=== PATIENT | male | born 1955 | race Caucasian/White ===

== ENCOUNTER 2017-12-23 07:07 | Inpatient (IN) | payer BC ==
[2017-12-23] VITALS (17 sets, daily range): BP systolic 103–139; BP diastolic 69–92; PULSE 56–69; TEMP 36.4–37.2; O2SAT 95–99; Ht 167.6 cm; Wt 109.0 kg
[~2017-12-23] VITALS: Ht 167.6 cm; Wt 109.0 kg
[~2017-12-23 07:07] MED LIST: ALLO300T2 PO; CHOL400C PO; CLN200; FEXO1TAB46 PO; LANS30CA63 PO; LOSA50TA54 PO; PRED20TA2 PO; SILD100T PO; SIMV10TA5 PO; VNTHFA/IN INH
[2017-12-23] MEDS ORDERED: MIDAZOLAM HCL 1 MG/ML 2ML VIAL ONE (07:38)
[2017-12-23] MEDS ORDERED: HEPARIN SOD (PORCINE) 1000 UNIT/ML 10 ML VIAL ONE ×2 (07:38→09:13)
[2017-12-23] MEDS ORDERED: FENTANYL CITRATE INJ 50 MCG/1 ML 2 ML VIAL ONE ×2 (07:38→09:39)
[2017-12-23] MEDS ORDERED: NITROGLYCERIN/D5W 100MCG/ML 20ML SYR ONE (07:38)
[2017-12-23] MEDS ORDERED: NiCARDipine HCL INJ 2.5 MG/ML 10 ML AMP ONE (07:38)
[2017-12-23] MEDS ORDERED: SODIUM CHLORIDE 0.9% 1000ML 1,000 ML IV SCH (08:10)
--- NOTE | 2017-12-23 08:10 | History & Physical Bridge Note ---
H&P Re-Evaluation Bridge Note: I have examined the patient, reviewed the History & Physical and in the interval since the performance of the History & Physical I have noted the following changes of clinical significance: No changes noted
[2017-12-23] MEDS ORDERED: DC ALL ANTICOAGULANTS ONE (08:15)
[2017-12-23] MEDS ORDERED: ADENOSINE IV SOLN 3 MG/ML 20 ML VIAL ONE (08:45)
[2017-12-23] MEDS ORDERED: CLOPIDOGREL BISULFATE 300 MG TAB PO ONE (09:32)
[2017-12-23] MEDS ORDERED: NITROGLYCERIN 0.4 MG SL PER TAB CHARGE SL PRN (09:45)
[2017-12-23] MEDS ORDERED: ONDANSETRON INJ 2 MG/ML 2 ML VIAL IV PRN (09:45)
[2017-12-23] MEDS: SODIUM CHLORIDE 0.9% 1000ML 1,000 ML IV SCH ×2 (09:45→19:37)
--- NOTE | 2017-12-23 09:50 | Post Sedation Assessment ---
Post Sedation Assessment General Date of Sedation Dec 23, 2017. Vital Signs: Vital Signs Past 12 Hours Date Time Temp Pulse Resp B/P (MAP) Pulse Ox O2 Delivery O2 Flow Rate FiO2 12/23/17 09:35 66 16 128/86 (100) 99 Room Air 12/23/17 09:30 66 16 116/83 (94) 99 Room Air 12/23/17 07:17 37.2 69 14 139/83 (101) 98 Room Air Post Procedure Recovery Score Activity: (2) Moves 4 extremities * Respiration: (2) Deep breath/cough Circulation: (2) +/-20% PreAnes Value Consciousness: (2) Fully Awake Oxygen Saturation: (2) > 92% On Room Air Post Anesthesia Score: 10 Discharge Sedation Level of Care: Fast Track Phase II Post Sedation Plan On clinical assessment, the patient appears to have tolerated the sedation without complications. Patient is recovering as anticipated. Patient will continue to be monitored by nursing and may be discharged when sedation discharge criteria are met per below protocol. Upon Completions of procedure and additional 15 minutes continue every 5 minute vital signs and the P.A.R. score; then discharge to a Phase I or Fast Track to Phase II per the following guidelines: * Discharge Patient to appropriate Phase II area if PAR is 8 or greater or return to pre- procedure baseline. The post - procedure orders will be as directed. * If PAR score is less than 8 or not return to pre-procedure baseline then patient will follow Phase I monitoring till PAR is reached for Phase II. The Phase I may be done in procedure room or may call to secure a Phase I area. * If naloxone or flumazenil are used for reversal, hold in Phase I for an additional 60 -120 minutes before discharge to Phase II. Please call the Sedation Physician to re-evaluate and complete post-note for discharge to Phase II area. Do NOT discharge from procedure sedation or Phase 1 until post- sedation evaluation note is complete by procedure /sedation MD Sedation Discharge Instructions to be given to the patient at discharge to home.
--- NOTE | 2017-12-23 09:52 | [facility] Post Operative Brief Note ---
Preliminary Procedure Note Procedure Date Dec 23, 2017. Pre-Procedure Diagnosis Positive Stress Test AUC Score 7 Post-Procedure Diagnosis Severe CAD, Successful PCI Procedure(s) Performed Drug Eluting Stent Backroom Associate Can Fluorescent Lamp Replacer(s) Contino Estimated Blood Loss <15 Medication(s) Clopidogrel, Fentanyl, Heparin, Nitroglycerin, Versed, Lidocaine 1% Preliminary Findings 1. 70-80% calcified mid LAD stenosis. 2. Successful PCI of proximal to mid LAD with single DEUCE (2.75 x 18 [place]; post- dilated to 3.0). Recommendations PCI without planned CABG Specimens None Drains none Anesthesia moderate Procedural Complication(s) None Disposition PCU
--- NOTE | 2017-12-23 12:22 | History and Physical ---
History & Physical Date & Time of Service: Dec 23, 2017 ~ 11:30 Chief Complaint: Chest pain Primary Care Physician: Karuna Price M.D. History of Present Illness 62-year-old male who is status post plan cardiac catheterization today [place] Patient had an outpatient stress test that was equivocal and therefore presented for the planned procedure today. Cardiac cath showed a 70-80% mid LAD lesion and one DEUCE was placed. Post-cath, patient is having some mild left-sided residual chest pain. He currently rates the pain #2/10. He denies any radiation of the pain into his jaw, neck, shoulder, arm. He denies shortness of breath and diaphoresis. No lightheadedness or dizziness. He denies abdominal pain and nausea. No other recent illnesses, fevers, chills. Past Medical/Surgical History Medical Problems: (1) CAD (coronary artery disease) Permanent Comment: 12/23/17-DEUCE to LAD Status: Chronic (2) Dyslipidemia Status: Chronic (3) GERD (gastroesophageal reflux disease) Status: Chronic (4) Gout Status: Chronic (5) Hypertension Status: Chronic Surgical Problems: (1) History of appendectomy Status: Chronic Family History FH: CAD (coronary artery disease) FATHER (First CA at age 47) MOTHER (CA in her 60s) Stroke FATHER ( from CVA at age 61) Social History Smoking Status: Never Smoker Alcohol Use: none Immunizations History of Influenza Vaccine: Yes Influenza Vaccine Date: Mar 09, 2017 History of Tetanus Vaccine?: Yes Tetanus Immunization Date: Feb 12, 2011 Allergies Coded Allergies: No Known Allergies (Verified Allergy, Mild, 02/27/07) Home Medications Scheduled Albuterol Hfa (Ventolin Hfa), 1 PUFF INH Q4 Allopurinol (Zyloprim), 300 MG PO DAILY Cholecalciferol (Vitamin D3 400), 400 INTER.UNIT PO DAILY Fexofenadine Hcl (Jessica), 180 MG PO DAILY Lansoprazole (Prevacid), 30 MG PO DAILY Losartan Potassium (Cozaar), 50 MG PO DAILY Sildenafil Citrate (Viagra), 100 MG PO PRN Simvastatin (Zocor), 10 MG PO QPM Sulindac (Sulindac), BID Review of Systems ROS per HPI, all other systems reviewed and negative Physical Exam Vital Signs Date Time Temp Pulse Resp B/P (MAP) Pulse Ox O2 Delivery O2 Flow Rate FiO2 12/23/17 11:04 64 18 134/86 (102) 95 Nasal Cannula 12/23/17 10:34 63 17 97 12/23/17 10:30 56 16 127/92 (104) 97 Room Air 12/23/17 10:15 57 16 124/88 (100) 97 Room Air 12/23/17 10:09 36.4 59 18 123/83 98 Room Air 12/23/17 09:40 66 16 126/93 (104) 100 Room Air 12/23/17 09:35 66 16 128/86 (100) 99 Room Air 12/23/17 09:30 66 16 116/83 (94) 99 Room Air 12/23/17 07:17 37.2 69 14 139/83 (101) 98 Room Air General Appearance: WD/WN, no apparent distress Head: normocephalic, atraumatic Eyes: normal inspection, EOMI, sclerae normal ENT: hearing grossly normal, + pertinent finding (Mucous membranes moist) Neck: supple, no JVD, trachea midline Respiratory/Chest: lungs clear, normal breath sounds, no respiratory distress Cardiovascular: regular rate, rhythm, no edema, normal peripheral pulses Abdomen/GI: normal bowel sounds, non tender, soft, no organomegaly Extremities/Musculoskelatal: normal inspection, no calf tenderness, normal capillary refill Neurologic/Psych: no motor/sensory deficits, alert, normal mood/affect, oriented x 3 Skin: normal color, warm/dry Diagnostics Laboratory Results Results Past 24 Hours Test 12/23/17 09:04 Range/Units Kaolin Activated Coagulation Time 202 94-140 SECONDS Impression Assessment and Plan CAD -Admitted to telemetry post-cath -Patient presented for planned cardiac catheterization after outpatient stress test was equivocal -Cardiac cath showed a 70-80% mid LAD lesion, patient underwent DEUCE placement -Monitor overnight for worsening chest pain -Started on dual antiplatelet therapy; continue outpatient statin and ARB HYPERTENSION -BP controlled, continue losartan GERD -Continue PPI GOUT -Continue allopurinol DVT PROPHYLAXIS -SCDs given the recent procedure ADDENDUM: This is a 62 year old male with a past medical history of HTN, CAD - presents for a scheduled cardiac catheterization. Had one stent placed earlier today and is now in the PCU for monitoring. He states he's doing fine; had 2/10 chest pain earlier, but now is improving. Denies shortness of breath; no nausea/vomiting Plan: continued tele monitoring monitor for chest pain; monitor labs in AM repeat troponin as per cardiology; further management as per cardiology Advanced Directives Existing Living Will: No Existing Power of Box Order Person: No Resuscitation Status VTE Prophylaxis Will order VTE Prophylaxis: Yes
--- NOTE | 2017-12-23 13:03 | Cardiac Catheterization ---
Procedure Note Procedure Date Dec 23, 2017. Pre-Procedure Diagnosis Positive Stress Test AUC Score 7 Post-Procedure Diagnosis Severe CAD, Successful PCI Procedure(s) Performed Drug Eluting Stent, Femoral Artery Angiography Drip Box Tender Can Cad Design Engineer(s) Contino Estimated Blood Loss <15 Medication(s) Clopidogrel, Fentanyl, Heparin, Nitroglycerin, Versed, Lidocaine 1% Summary of Findings Indication: Positive stress test Access: 6Fr right DENTAL APPLIANCE FIXER Catheters: EBU 3.5 guide Findings: For full details of patient's coronary angiography please cath report dictated by Dr. Sumner. Briefly, patient found to have severe single vessel disease with a 70-80% stenosis involving the proximal to mid LAD. Decision to proceed with PCI. -- PCI -- Antithrombotic therapy: Heparin, Clopidogrel Procedure: LM cannulated with EBU 3.5 guide BMW wire passed across lesion into distal vessel Proximal/mid LAD lesion predilated with 2.5 compliant balloon Dilated lesion stented with 2.75 x 18 [place] DEUCE Stent post-dilated with 3.0 noncompliant balloon IC vasodilators administered for spasm Post procedure SANTI 3 flow, stent well expanded with minimal residual stenosis and no apparent cardiac complications. Arterial Closure: Angio-seal Summary: 1. Successful PCI of proximal to mid LAD with single DEUCE (2.75 x 18 [place]; post- dilated with 3.0 NC). Recommendations: To PCU for continued monitoring Loaded with Clopidogrel 600mg Continue dual-antiplatelet therapy for at least 6 months. Continue statin, and ASCVD risk factor modification Consult cardiac Rehab Hemodynamics Rest Ao: 130/69/98 Final Ao: 110/73/91 LV: -- Recommendations PCI without planned CABG Specimens None Radiation Exposure (mGy) 3741 Contrast (mls) 210 opti (total) Fluids (cc crystalloids) 123 NSS Drains none Anesthesia moderate Procedural Complication(s) None Disposition PCU ACC Data Cardiac Status Clinical evaluation leading to the procedure CAD Presntation: Positive Stress Test Heart Failure: NYHA Class: CCS II Cardiogenic Shock w/in 24Hrs: No Cardiac Arrest w/in 24Hrs: No Imaging studies past 6 months: Yes Stress studies past 6 months: Yes Stress Echocardiogram: Yes - Positive, Risk/Extent of Ischemia (Low) Closure Device Percutaneous Entry Location: Femoral Closure Device: Angio-Seal Recommendations: PCI without planned CABG PCI Indication: + Stress Test Lesion Segment Name: mid LAD Culprit Artery: Yes Stenosis Prior to Rx (%): 70-80% Chronic Total Occlusion: No IVUS: No FFR: No Pre-Procedure SANTI Flow: 3 Previously Treated Lesion: No Lesion Complexity: Non-High/Non-C Lesion Length (mm): 12 Thrombus Present: No Bifurcation Lesion: Yes Guidewire Across Lesion: Yes Guidewire: Stenosis Post-Procedure (%): 0 Device(s) Deployed: Yes Intraprocedure Events Significant Dissection: No Perforation: No
[2017-12-23] MEDS ORDERED: IV FLUIDS COMPLETED PRN (14:30)
--- NOTE | 2017-12-23 15:33 | Procedure Note ---
Cardiac Cath Report Procedure: 1. Left heart catheterization 2. Coronary angiography 3. Left ventriculography History: This is a 62-year-old male patient who has been experiencing exertional dyspnea and chest discomfort. He had an equivocal exercise stress echocardiogram and has been referred for cardiac catheterization. Procedure summary: The patient had a Barbeau maneuver which indicated poor collateral circulation to the right hand. Therefore after informed consent was obtained and the patient was prepped and draped in the usual manner a right transfemoral approach was utilized. Preformed 5 Micronesian diagnostic catheters were utilized for the coronary angiograms. A 5 Micronesian pigtail catheter was utilized for the left ventriculogram. Following the procedure the patient underwent coronary intervention and was admitted in stable condition. Coronary angiography: Selective injections of the left coronary artery reveal a dual ostium left main trunk. The left circumflex artery is dominant. The left circumflex artery has multiple marginal branches the left circumflex artery has mild diffuse nonobstructive disease. The left anterior descending artery gives off to small to medium sized diagonal branches. The LAD is diffusely diseased. At the takeoff of the first diagonal branch and first septal branch there is a high- grade eccentric stenosis. Selective injections of the right coronary artery revealed to be small and nondominant. The right coronary artery has diffuse nonobstructive disease. Left ventriculogram: The left ventricle is of normal size with normal systolic function. The aortic root and ascending aorta have normal morphology and diameter. The mitral valve is competent. The LVEDP is 10. Summary: The patient has a dominant left system. There is a high-grade stenosis in the mid LAD. The remainder the coronary anatomy has nonobstructive disease. The left ventricular function is normal. The estimated left ventricular ejection fraction is 60%. Recommendations: Are for coronary intervention on the LAD.
--- NOTE | 2017-12-23 15:36 | Cardiac Catheterization ---
Procedure Note Procedure Date Dec 23, 2017. Pre-Procedure Diagnosis Angina AUC Score 7 Post-Procedure Diagnosis Severe CAD Procedure(s) Performed Coronary Angiography, Left Heart Cath, LV Angiography High School Music Instructor Dr. Sumner Grappler(s) None Estimated Blood Loss None Medication(s) Versed, Lidocaine 1% Summary of Findings See dictated report Hemodynamics Rest Ao: 125/79 Final Ao: 130/69 LV: 129/10 Recommendations PCI without planned CABG Specimens None Radiation Exposure (mGy) 1440 Contrast (mls) 90 Procedural Complication(s) None Disposition PCU ACC Data Cardiac Status Clinical evaluation leading to the procedure CAD Presntation: Stable angina Anginal Classification: CCS II Heart Failure: No Cardiogenic Shock w/in 24Hrs: No Cardiac Arrest w/in 24Hrs: No Imaging studies past 6 months: No Stress studies past 6 months: Yes Stress Echocardiogram: Yes - Indeterminant Coronary Anatomy Dominant: Left Left Main (% Stenosis): Normal LAD (% Stenosis): Mid (90%) Circumflex (% Stenosis): Normal RCA (% Stenosis): Normal Left Ventricular Angiography EF (%): 60% Diagnostic Physician's Name: Matias Sumner, DO Status: Elective Closure Device Percutaneous Entry Location: Femoral
[2017-12-23] MEDS: ALBUTEROL HFA 8 GM INHALER INH SCH ×2 (17:24→19:36)
[2017-12-23] MEDS: ACETAMINOPHEN 325 MG TAB PO PRN (19:38)
[2017-12-23] MEDS ORDERED: SIMVASTATIN 10 MG TAB PO SCH (21:00)
--- NOTE | 2017-12-23 22:35 | DIAGNOSTIC IMAGING REPORT ---
RIGHT LOWER EXTREMITY VENOUS DOPPLER CLINICAL HISTORY: Leg swelling. COMPARISON STUDY: No previous studies for comparison. TECHNIQUE: Sonography of the deep venous system of the right lower extremity was performed. Compression and augmentation were evaluated. FINDINGS: The right common femoral, superficial femoral and popliteal veins were compressible. Augmentation was normal. Flow was shown within the deep calf vessels. IMPRESSION: No evidence of deep venous thrombus within the right lower extremity. Electronically signed by: Rosendo Contreras M.D. 12/23/2017 10:33 PM Dictated Date/Time: 12/23/2017 10:33 PM
[2017-12-24 00:01] VITALS: BP 105/68; PULSE 56; TEMP 37.1; O2SAT 97
[2017-12-24] MEDS: ALBUTEROL HFA 8 GM INHALER INH SCH ×4 (04:00→12:00)
[2017-12-24 04:01] VITALS: BP 126/89; PULSE 52; TEMP 36.9; O2SAT 96
[2017-12-24] MEDS: ACETAMINOPHEN 325 MG TAB PO PRN (04:26)
[2017-12-24] MEDS: SODIUM CHLORIDE 0.9% 1000ML 1,000 ML IV SCH (04:31)
[2017-12-24 05:09] LABS: BASO % 0.3 %; BASO ABS # 0.02 K/uL (0-0.2); EOS % 1.6 %; EOS ABS # 0.12 K/uL (0-0.5); HEMATOCRIT 40.6 % (42-52); IG# 0.01 K/uL (0.00-0.02); LYMPH % 30.7 %; LYMPH ABS # 2.35 K/uL (1.2-3.4); MEAN CELL VOLUME 86.2 fL (80-100); MEAN CORPUSCULAR HEMOGLOBIN 29.7 pg (25-34); MEAN CORPUSCULAR HGB CONC 34.5 g/dl (32-36); MEAN PLATELET VOLUME 11.1 fL (7.4-10.4); MONO ABS # 0.69 K/uL (0.11-0.59); NEUT % 58.3 %; NEUT ABS # 4.46 K/uL (1.4-6.5); PLATELET COUNT 179 K/uL (130-400); RED CELL DISTRIBUTION WIDTH CV 12.6 % (11.5-14.5); RED CELL DISTRIBUTION WIDTH SD 39.8 fL (36.4-46.3); WHITE BLOOD COUNT 7.65 K/uL (4.8-10.8)
[2017-12-24 05:46] LABS: CALCIUM 7.9 mg/dl (8.5-10.1); CREATININE 1.07 mg/dl (0.60-1.40)
[2017-12-24 08:01] VITALS: BP 129/91; PULSE 65; TEMP 36.8; O2SAT 97
[2017-12-24] MEDS ORDERED: ALLOPURINOL 300 MG TAB PO SCH (09:00)
[2017-12-24] MEDS ORDERED: ASPIRIN 81 MG ECTAB PO SCH (09:00)
[2017-12-24] MEDS ORDERED: PANTOprazole SOD 40 MG TAB PO SCH (09:00)
[2017-12-24] MEDS ORDERED: FEXOFENADINE HCL 180 MG TAB PO SCH (09:00)
[2017-12-24] MEDS ORDERED: LOSARTAN POTASSIUM 50 MG TAB PO SCH (09:00)
[2017-12-24] MEDS ORDERED: CLOPIDOGREL BISULFATE 75 MG TAB PO SCH (09:00)
--- NOTE | 2017-12-24 09:24 | Cardiology Follow-Up ---
Subjective General Date of Service: Dec 24, 2017. Chief Complaint: follow up CAD, LAD stent Pt evaluation today including: conversation w/ patient, conversation w/ family , physical exam, chart review, lab review History of Present Illness The patient is a 62 year old male seen in follow up in coverage of Dr Sumner. Patient feeling well. Denies chest pain or shortness of breath. Right groin pain radiating to R testicle noted shortly after procedure yesterday -resolved. LEVduplex negative for R DVT. Allergies Coded Allergies: No Known Allergies (Verified Allergy, Mild, 02/27/07) Social History Smoking Status: Never Smoker Hx Alcohol Use - Type And Amou: No Hx Substance Use - Type And Am: No Physical Exam Vital Signs Last Vital Signs Documentation Date Time Temp Pulse Resp B/P (MAP) Pulse Ox O2 Delivery O2 Flow Rate FiO2 12/24/17 08:01 36.8 65 14 129/91 (104) 97 Room Air Physical Exam Constitutional: General Apperance: heathly-appearing Level of Distress: NAD Head: normocephalic, atraumatic Neck: supple, trachea midline Lungs: Auscultation: no wheezing, no rales/crackles, no rhonchi Cardiovascular: Heart Auscultation: no murmurs, no rubs, no gallops Peripheral Pulses: Bruits: none appreciated Femoral Pulse: normal on the left, normal on the right Abdomen: Bowel Sounds: normal Inspection & Palpation: soft, non-distended Extremities: no edema, no varicosities Neurologic: Gait & Station: pertinent finding (no focal deficits ) Assessment and Plan Assessment and Plan Telemetry: SB and SR in the 50-60 bpm range, no significant arrhythmia Impression: 62 year old male 1. Admitted for exertional angina, underwent cardiac cath 12/23/17 revealing single vessel CAD with high grade proximal LAD stenosis treated with PCI, DEUCE 2. 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 HTN-controlled 4. Dyslipidemia 5. Borderline sinus bradycardia Plan: Groin exam: no ecchymosis or evidence of hematoma. Soft. Pt stable for discharge to home. Pt to be discharged on life long low dose ASA 81 mg daily. Clopidogrel 75 mg, current guidelines for DEUCE in abscence of [place], dual antiplatelet therapy for 6-12 months. For now plan for 12 months-duration to be reassessed as outpatient. HTN- continue losartan, ORE BUYER dose. Holding off on starting metoprolol due to relative sinus bradycardia, HRs in 50s at rest on telemetry. Dyslipidemia: DC simvastatin 10 mg, start atorvastatin 40 mg daily. Follow up with Dr Sumner in 2-3 weeks. OK to return to work late next week , if feeling well. Will consider cardiac rehab when seen in follow up. Discharge instructions for femoral artery access: ACTIVITY RECOMMENDATIONS: It is common to feel weak and fatigue for a few days. * Do not drive or operate any motorized equipment for the next three days. * Limit stair usage (2 or 3 trips a day only) for the next three days. * Do not lift anything heavier than 10 pounds for the next three days. * Do not engage in vigorous exercise or any sports for the next five days. * You may shower the day after your procedure, but do not immerse the area for three days. Cleanse the site gently with soap and water. SPECIAL CARE INSTRUCTIONS: * You may replace the pressure dressing or band-aid the morning after the procedure. * After your procedure, it is normal to have a small bruise or small lump at the site. Examine your site daily for any change in the bruise or lump, redness, swelling, drainage or numbness. Notify your doctor if any change. BLEEDING: * If there is a small amount of bleeding at the site, lie down and apply firm pressure with a clean cloth for ten minutes. When the bleeding stops, lie quietly keeping the procedure limb straight for six hours. Notify your doctor as soon as possible. * If the bleeding does not stop after ten minutes or if there is a large amount of bleeding or spurting, call 911 immediately. Continue to lie down and hold firm pressure until help arrives. SKIN IRRITATION: * You may experience some redness and/or swelling in the area where radiation was administered. If any skin irritation occurs, please contact your family physician. FOLLOW UP VISIT: Keep any scheduled doctor appointments. Laboratory Results Last 24 Hours Test 12/24/17 04:21 White Blood Count 7.65 K/uL Red Blood Count 4.71 M/uL Hemoglobin 14.0 g/dL Hematocrit 40.6 % Mean Corpuscular Volume 86.2 fL Mean Corpuscular Hemoglobin 29.7 pg Mean Corpuscular Hemoglobin Concent 34.5 g/dl Platelet Count 179 K/uL Mean Platelet Volume 11.1 fL Neutrophils (%) (Auto) 58.3 % Lymphocytes (%) (Auto) 30.7 % Monocytes (%) (Auto) 9.0 % Eosinophils (%) (Auto) 1.6 % Basophils (%) (Auto) 0.3 % Neutrophils # (Auto) 4.46 K/uL Lymphocytes # (Auto) 2.35 K/uL Monocytes # (Auto) 0.69 K/uL Eosinophils # (Auto) 0.12 K/uL Basophils # (Auto) 0.02 K/uL RDW Standard Deviation 39.8 fL RDW Coefficient of Variation 12.6 % Immature Granulocyte % (Auto) 0.1 % Immature Granulocyte # (Auto) 0.01 K/uL Sodium Level 139 mmol/L Potassium Level 4.0 mmol/L Chloride Level 109 mmol/L Carbon Dioxide Level 25 mmol/L Anion Gap 5.0 mmol/L Blood Urea Nitrogen 16 mg/dl Creatinine 1.07 mg/dl Est Creatinine Clear Calc Drug Dose 83.9 ml/min Estimated GFR () 86.4 Estimated GFR (Non- 74.5 BUN/Creatinine Ratio 14.9 Random Glucose 87 mg/dl Calcium Level 7.9 mg/dl
[2017-12-24 11:33] VITALS: BP 146/82; PULSE 74; O2SAT 96
--- NOTE | 2017-12-24 14:08 | Progress Note ---
Internal Med Progress Note Date of Service: Dec 24, 2017. Provider Documentation: SUBJECTIVE: The patient was seen and examined in ICU Admitted with them unstable angina and is status post cardiac cath and DEUCE in LAD Has been doing fine since the procedure Denies any symptoms as of today except some numbness at the right groin OBJECTIVE: Vital Signs-as noted below Exam: General-no apparent distress at rest Ambulating well Eyes-normal ENT-normal Neck-supple Lungs-clear to auscultate bilaterally Heart-regular, no murmur appreciated Abdomen-benign Extremities-no edema Local examination of the right groin, no significant abnormality Neuro-alert,awake oriented 3 No focal sensory and motor deficit Lab data as noted below. ASSESSMENT & PLAN: CAD Exertional angina status post cardiac cath and DEUCE in LAD-12/23/17 -Patient presented for planned cardiac catheterization after outpatient stress test was equivocal -Cardiac cath showed a 70-80% mid LAD lesion, patient underwent DEUCE placement -Remains stable in ICU without any arrhythmias -Started on dual antiplatelet therapy; continue outpatient statin with increasing dose and ARB. No beta-josefina due to bradycardia -Was evaluated by monotyper this morning -Denies any symptoms and wants to go home HYPERTENSION -BP controlled, continue losartan GERD -Continue PPI GOUT -Continue allopurinol DVT PROPHYLAXIS -SCDs given the recent procedure DISPOSITION Discharged home today Vital Signs: Date Time Temp Pulse Resp B/P (MAP) Pulse Ox O2 Delivery O2 Flow Rate FiO2 12/24/17 11:33 74 15 146/82 (103) 96 Room Air 12/24/17 08:01 36.8 65 14 129/91 (104) 97 Room Air 12/24/17 08:00 Room Air 12/24/17 04:01 36.9 52 15 126/89 (101) 96 Room Air 12/24/17 00:01 37.1 56 16 105/68 (80) 97 Room Air 12/23/17 20:01 37.0 68 15 114/77 (89) 95 Room Air 12/23/17 20:00 Room Air 12/23/17 17:16 65 18 111/84 (93) 95 Room Air 12/23/17 17:01 64 18 118/81 (93) 12/23/17 16:32 59 12 103/69 (80) 99 Room Air 12/23/17 16:00 61 15 108/79 (89) 12/23/17 16:00 Room Air 12/23/17 16:00 61 15 108/79 (89) 97 Room Air 12/23/17 15:31 56 16 110/81 (91) 97 Room Air 12/23/17 15:16 58 13 123/87 (99) 98 Room Air 12/23/17 15:01 59 18 115/86 (96) Lab Results: Results Past 24 Hours Test 12/24/17 04:21 Range/Units White Blood Count 7.65 4.8-10.8 K/uL Red Blood Count 4.71 4.7-6.1 M/uL Hemoglobin 14.0 14.0-18.0 g/dL Hematocrit 40.6 42-52 % Mean Corpuscular Volume 86.2 80-100 fL Mean Corpuscular Hemoglobin 29.7 25-34 pg Mean Corpuscular Hemoglobin Concent 34.5 32-36 g/dl Platelet Count 179 130-400 K/uL Mean Platelet Volume 11.1 7.4-10.4 fL Neutrophils (%) (Auto) 58.3 % Lymphocytes (%) (Auto) 30.7 % Monocytes (%) (Auto) 9.0 % Eosinophils (%) (Auto) 1.6 % Basophils (%) (Auto) 0.3 % Neutrophils # (Auto) 4.46 1.4-6.5 K/uL Lymphocytes # (Auto) 2.35 1.2-3.4 K/uL Monocytes # (Auto) 0.69 0.11-0.59 K/uL Eosinophils # (Auto) 0.12 0-0.5 K/uL Basophils # (Auto) 0.02 0-0.2 K/uL RDW Standard Deviation 39.8 36.4-46.3 fL RDW Coefficient of Variation 12.6 11.5-14.5 % Immature Granulocyte % (Auto) 0.1 % Immature Granulocyte # (Auto) 0.01 0.00-0.02 K/uL Sodium Level 139 136-145 mmol/L Potassium Level 4.0 3.5-5.1 mmol/L Chloride Level 109 98-107 mmol/L Carbon Dioxide Level 25 21-32 mmol/L Anion Gap 5.0 3-11 mmol/L Blood Urea Nitrogen 16 7-18 mg/dl Creatinine 1.07 0.60-1.40 mg/dl Est Creatinine Clear Calc Drug Dose 83.9 ml/min Estimated GFR () 86.4 Estimated GFR (Non- 74.5 BUN/Creatinine Ratio 14.9 10-20 Random Glucose 87 70-99 mg/dl Calcium Level 7.9 8.5-10.1 mg/dl
[2017-12-24] MEDS ORDERED: PLV75 PO (14:10)
[2017-12-24] MEDS ORDERED: ASPI-461 PO (14:10)
[2017-12-24] MEDS ORDERED: LPT40 PO (14:10)
[2017-12-24] MEDS ORDERED: PANT1TAB4 PO (14:10)
--- NOTE | 2017-12-24 14:13 | Discharge Instructions ---
Discharge Instructions Date of Service Dec 24, 2017. Admission Reason for Admission: CAD Discharge Discharge Diagnosis / Problem: CAD,S/P Cardiac Cath and DEUCE in LAD Discharge Goals Goal(s): Prevent Disease Progression Activity Recommendations Activity Limitations: resume your previous activity . Instructions / Follow-Up Instructions / Follow-Up Dr Price on 12/29/17 at 12:[address] Sumner on 01/10/18 at 8:30AM Current Hospital Diet Patient's current hospital diet: AHA Diet (Heart Healthy) Discharge Diet Recommended Diet: AHA Diet (Heart Healthy) Pending Studies Studies pending at discharge: no Medical Emergencies . Who to Call and When: Medical Emergencies: If at any time you feel your situation is an emergency, please call 911 immediately. . Non-Emergent Contact Non-Emergency issues call your: Primary Care Provider . Past History Medical & Surgical History: (1) CAD (coronary artery disease) (2) Dyslipidemia (3) Gout (4) Hypertension (5) GERD (gastroesophageal reflux disease) (6) History of appendectomy . "Provider Documentation" section prepared by Pete Sawyer. . [employer]age Construction Equipment Mechanic Recommendations Garage [employer] Equipment Mechanic Recommendations: ACTIVITY RECOMMENDATIONS: It is common to feel weak and fatigue for a few days. * Do not drive or operate any motorized equipment for the next three days. * Limit stair usage (2 or 3 trips a day only) for the next three days. * Do not lift anything heavier than 10 pounds for the next three days. * Do not engage in vigorous exercise or any sports for the next five days. * You may shower the day after your procedure, but do not immerse the area for three days. Cleanse the site gently with soap and water. SPECIAL CARE INSTRUCTIONS: * You may replace the pressure dressing or band-aid the morning after the procedure. * After your procedure, it is normal to have a small bruise or small lump at the site. Examine your site daily for any change in the bruise or lump, redness, swelling, drainage or numbness. Notify your doctor if any change. BLEEDING: * If there is a small amount of bleeding at the site, lie down and apply firm pressure with a clean cloth for ten minutes. When the bleeding stops, lie quietly keeping the procedure limb straight for six hours. Notify your doctor as soon as possible. * If the bleeding does not stop after ten minutes or if there is a large amount of bleeding or spurting, call 911 immediately. Continue to lie down and hold firm pressure until help arrives. SKIN IRRITATION: * You may experience some redness and/or swelling in the area where radiation was administered. If any skin irritation occurs, please contact your family physician. FOLLOW UP VISIT: Keep any scheduled doctor appointments.
[2017-12-24 14:16] VITALS: BP 146/82; PULSE 74; TEMP 36.8; O2SAT 96
--- NOTE | 2017-12-24 15:20 | Progress Note ---
Progress Note Date of Service Dec 24, 2017. Progress Note Certified that Ayo Amaya Chris JAMIL 1955 has been under my care in [facility] since 12/23/2017. He was advised to go back to his work on , December,. Dr. Nava Sawyer
[2017-12-24] MEDS ORDERED: ATORVASTATIN 40 MG TAB PO SCH (21:00)
--- NOTE | 2017-12-25 08:21 | Discharge Summary ---
Discharge Summary Date of Service Dec 25, 2017. Discharge Summary Admission Date: Dec 23, 2017 at 09:48 Discharge Date: Dec 24, 2017 Discharge Disposition: Home Principal Diagnosis: CAD,S/P Cardiac Cath and DEUCE in LAD Secondary Diagnoses/Problems: Please see H&P and Hospital progress note Consultations: Cardiology Medication Reconciliation New Medications: Aspirin (Aspirin) 81 Mg Tab 81 MG PO QAM for 30 Days, #30 TAB Atorvastatin (Lipitor) 40 Mg Tab 40 MG PO HS for 30 Days, #30 TAB Clopidogrel Bisulfate (Clopidogrel) 75 Mg Tab 75 MG PO QAM for 30 Days, #30 TAB Continue for 12 Months with Aspirin Continued Medications: Albuterol Hfa (Ventolin Hfa) 200 Puffs/11480 Mcg Aers 1 PUFF INH Q4, #1 INHALER Allopurinol (Zyloprim) 300 Mg Tab 300 MG PO DAILY, TAB Cholecalciferol (Vitamin D3 400) 400 Unit Cap 400 INTER.UNIT PO DAILY Fexofenadine Hcl (Jessica) 180 Mg Tab 180 MG PO DAILY, TAB Lansoprazole (Prevacid) 30 Mg Cap 30 MG PO DAILY, CAP Losartan Potassium (Cozaar) 50 Mg Tab 50 MG PO DAILY, TAB Sildenafil Citrate (Viagra) 100 Mg Tab 100 MG PO PRN, TAB Discontinued Medications: Simvastatin (Zocor) 10 Mg Tab 10 MG PO QPM, TAB Sulindac (Sulindac) 200 Mg Tab BID Admission Information HPI (per Admitting provider): 62-year-old male who is status post plan cardiac catheterization today [place] Drs. [place] Patient had an outpatient stress test that was equivocal and therefore presented for the planned procedure today. Cardiac cath showed a 70-80% mid LAD lesion and one DEUCE was placed. Post-cath, patient is having some mild left-sided residual chest pain. He currently rates the pain #2/10. He denies any radiation of the pain into his jaw, neck, shoulder, arm. He denies shortness of breath and diaphoresis. No lightheadedness or dizziness. He denies abdominal pain and nausea. No other recent illnesses, fevers, chills. Physical Exam (per Admitting): General Appearance: WD/WN, no apparent distress Head: normocephalic, atraumatic Eyes: normal inspection, EOMI, sclerae normal ENT: hearing grossly normal, + pertinent finding (Mucous membranes moist) Neck: supple, no JVD, trachea midline Respiratory/Chest: lungs clear, normal breath sounds, no respiratory distress Cardiovascular: regular rate, rhythm, no edema, normal peripheral pulses Abdomen/GI: normal bowel sounds, non tender, soft, no organomegaly Extremities/Musculoskelatal: normal inspection, no calf tenderness, normal capillary refill Neurologic/Psych: no motor/sensory deficits, alert, normal mood/affect, oriented x 3 Skin: normal color, warm/dry Hospital Course CAD Exertional angina status post cardiac cath and DEUCE in LAD-12/23/17 -Patient presented for planned cardiac catheterization after outpatient stress test was equivocal -Cardiac cath showed a 70-80% mid LAD lesion, patient underwent DEUCE placement -Remains stable in ICU without any arrhythmias -Started on dual antiplatelet therapy; continue outpatient statin with increasing dose and ARB. No beta-josefina due to bradycardia -Was evaluated by plastics repairer this morning -Denies any symptoms and wants to go home HYPERTENSION -BP controlled, continue losartan GERD -Continue PPI GOUT -Continue allopurinol DVT PROPHYLAXIS -SCDs given the recent procedure DISPOSITION Discharged home today Total time spent on discharge = 35 minutes This includes examination of the patient, discharge planning, medication reconciliation, and communication with other providers. Discharge Instructions Date of Service Dec 24, 2017. Admission Reason for Admission: CAD Discharge Discharge Diagnosis / Problem: CAD,S/P Cardiac Cath and DEUCE in LAD Discharge Goals Goal(s): Prevent Disease Progression Activity Recommendations Activity Limitations: resume your previous activity . Instructions / Follow-Up Instructions / Follow-Up Dr Price on 12/29/17 at 12:[address] Sumner on 01/10/18 at 8:30AM Current Hospital Diet Patient's current hospital diet: AHA Diet (Heart Healthy) Discharge Diet Recommended Diet: AHA Diet (Heart Healthy) Pending Studies Studies pending at discharge: no Medical Emergencies . Who to Call and When: Medical Emergencies: If at any time you feel your situation is an emergency, please call 911 immediately. . Non-Emergent Contact Non-Emergency issues call your: Primary Care Provider . Past History Medical & Surgical History: (1) CAD (coronary artery disease) (2) Dyslipidemia (3) Gout (4) Hypertension (5) GERD (gastroesophageal reflux disease) (6) History of appendectomy . "Provider Documentation" section prepared by Pete Sawyer. . Felt Hooker Recommendations Felt Hooker Recommendations: ACTIVITY RECOMMENDATIONS: It is common to feel weak and fatigue for a few days. * Do not drive or operate any motorized equipment for the next three days. * Limit stair usage (2 or 3 trips a day only) for the next three days. * Do not lift anything heavier than 10 pounds for the next three days. * Do not engage in vigorous exercise or any sports for the next five days. * You may shower the day after your procedure, but do not immerse the area for three days. Cleanse the site gently with soap and water. SPECIAL CARE INSTRUCTIONS: * You may replace the pressure dressing or band-aid the morning after the procedure. * After your procedure, it is normal to have a small bruise or small lump at the site. Examine your site daily for any change in the bruise or lump, redness, swelling, drainage or numbness. Notify your doctor if any change. BLEEDING: * If there is a small amount of bleeding at the site, lie down and apply firm pressure with a clean cloth for ten minutes. When the bleeding stops, lie quietly keeping the procedure limb straight for six hours. Notify your doctor as soon as possible. * If the bleeding does not stop after ten minutes or if there is a large amount of bleeding or spurting, call 911 immediately. Continue to lie down and hold firm pressure until help arrives. SKIN IRRITATION: * You may experience some redness and/or swelling in the area where radiation was administered. If any skin irritation occurs, please contact your family physician. FOLLOW UP VISIT: Keep any scheduled doctor appointments. Additional Copies To Karuna Price M.D.
== END 2017-12-24 15:46 | disposition home or self-care (01) | DRG 247 ==
LOC: C.CATH 07:07 → ENRESERV 09:34 → C.MSICU 09:48
PROVIDERS: ADMIT Internal Medicine; ATTEND Internal Medicine
PROC: B211YZZ Fluoroscopy of Multiple Coronary Arteries using Other Contrast (ICD-10-PCS; 2017-12-23)
PROC: B215YZZ Fluoroscopy of Left Heart using Other Contrast (ICD-10-PCS; 2017-12-23)
PROC: 4A023N7 Measurement of Cardiac Sampling and Pressure, Left Heart, Percutaneous Approach (ICD-10-PCS; 2017-12-23)
PROC: 027034Z Dilation of Coronary Artery, One Artery with Drug-eluting Intraluminal Device, Percutaneous Approach (ICD-10-PCS; principal; 2017-12-23 07:30)
PROC: B41FYZZ Fluoroscopy of Right Lower Extremity Arteries using Other Contrast (ICD-10-PCS; principal; 2017-12-23 07:30)
DX: I25.10 Atherosclerotic heart disease of native coronary artery without angina pectoris (principal); M79.2 Neuralgia and neuritis, unspecified; I10 Essential (primary) hypertension; E78.5 Hyperlipidemia, unspecified; K21.0 Gastro-esophageal reflux disease with esophagitis; M1A.00X0 Idiopathic chronic gout, unspecified site, without tophus (tophi); J30.9 Allergic rhinitis, unspecified; Z79.1 Long term (current) use of non-steroidal anti-inflammatories (NSAID); Z79.899 Other long term (current) drug therapy; Z82.49 Family history of ischemic heart disease and other diseases of the circulatory system

== ENCOUNTER 2018-08-19 17:12 | Observation (INO) ==
--- NOTE | 2018-08-19 17:57 | XRay Report ---
XR chest 1V portable CLINICAL HISTORY: Chest Pain COMPARISON STUDY: Chest CT September 17, 2017. FINDINGS: Lung volumes are at the lower limits of normal. There is no pneumothorax or pleural effusio n. Linear left lung opacities favor atelectasis or scarring. These are unchanged. No evidence for pul monary edema. Mild cardiomegaly is noted. IMPRESSION: 1. No acute cardiopulmonary findings. 2. Mild cardiomegaly. Electronically signed by: Rosendo Contreras M.D. 08/19/2018 5:56 PM
[2018-08-19 18:14] LABS: Basophils # (auto) 0.02 K/uL (0-0.2); Basophils % (auto) 0.2 %; Eosinophils # (auto) 0.03 K/uL (0-0.5); Eosinophils % (auto) 0.3 %; Hematocrit (blood only) 43.4 % (42-52); Hemoglobin 15.1 g/dL (14.0-18.0); Immature Granulocytes # (auto) 0.02 K/uL (0.00-0.02); Immature Granulocytes % (auto) 0.2 %; Lymphocytes # (auto) 1.74 K/uL (1.2-3.4); Lymphocytes % (auto) 15.8 %; Mean Corpuscular Hgb Conc 34.8 g/dL (32-36); Mean Corpuscular Volume 86.8 fL (80-100); Mean Platelet Volume 11.1 fL (7.4-10.4); Monocytes # (auto) 0.39 K/uL (0.11-0.59); Monocytes % (auto) 3.5 %; Neutrophils # (auto) 8.81 K/uL (1.4-6.5); Platelet Count 190 K/uL (130-400); RDW Coefficient of Variation 12.7 % (11.5-14.5); RDW Standard Deviation 40.5 fL (36.4-46.3); White Blood Count 11.01 K/uL (4.8-10.8)
[2018-08-19 18:32] LABS: Alanine Aminotransferase 37 U/L (12-78); Albumin Level 3.8 gm/dl (3.4-5.0); Aspartate Aminotransferase 17 U/L (15-37); BUN Creatinine Ratio 14.3 (10-20); Blood Urea Nitrogen 15 mg/dl (7-18); Calcium 8.6 mg/dl (8.5-10.1); Carbon Dioxide 28 mmol/L (21-32); Chloride 109 mmol/L (98-107); Creatinine Clr Calc Pharmacy 85.2 ml/min; Est GFR (African American) 87.4; Est GFR (Non-African American) 75.4; Glucose 109 mg/dl (70-99); Potassium 3.9 mmol/L (3.5-5.1); Sodium 141 mmol/L (136-145)
[2018-08-19 18:37] LABS: Alkaline Phosphatase 85 U/L (45-117); Bilirubin,Total 0.6 mg/dl (0.2-1); Globulin 3.7 gm/dl (2.5-4.0); Total Protein 7.5 gm/dl (6.4-8.2); Troponin I < 0.015 ng/ml (0-0.045)
--- NOTE | 2018-08-19 18:46 | Emergency Department Note ---
Entered by Teresa Moncada acting as a scribe for ED Provider Note CHIEF COMPLAINT: Cardiac assessment HISTORY OF PRESENT ILLNESS: The patient is a 62 year old male who presents to the Emergency Room for a c ardiac assessment. The patient reports he felt like he was falling. He notes he feels like something is falling inside my chest. The patient states he started getting ongoing chills. He reports his symptoms started at 2 oclock while he was sitting on a chair. The patient states he has a little bit of headache. He notes he has constant chest pain on the left side. The patient reports he has an empty sensation in chest but appeared ill in life. He rates his pain as 2/10. He notes he had a stent put in 6 months ago. Pt denies LOC, headache, fevers, diaphoresis, visual changes, neck pain, breathing difficulties, nausea, vomiting, abdominal pain, back pain, melena, hematochezia, urinary symptoms, numbness, weakness, lymphadenopathy, rash, or other complaints. REVIEW OF SYSTEMS: See HPI for pertinent positives and negatives. A total of ten systems were revi ewed and were otherwise negative. PMHx/PSHx: CAD Dyslipidemia Gout Hypertension GERD Hx of appendectomy SOCIAL HISTORY: Patient lives at home. PHYSICAL EXAM: GENERAL: Awake, alert, well-appearing, in no distress HENT: Normocephalic, atraumatic. Oropharynx unremarkable. EYES: Normal conjunctiva. Sclera non-icteric. NECK: Inspection normal. Non-tender. Supple. No nuchal rigidity. FROM. No masses. RESPIRATORY: Clear to auscultation. No wheezes. No rales. Normal respiratory effort. CARDIAC: Normal rate. Normal rhythm. No murmurs. No rubs. Extremities warm and well perfused. Pulses equal. No JVD. GI: Soft, non-distended. No tenderness to palpation. No rebound or guarding. No masses. RECTAL: Deferred. MUSCULOSKELETAL: Atraumatic. Chest examination reveals no tenderness. The back is symmetrical on inspection without obvious abnormality. There is no CVA tenderness to palpation. No joint edema. LOWER EXTREMITIES: Calves are equal size bilaterally and non-tender. No edema. No discoloration. NEURO: Normal sensorium. No sensory or motor deficits noted. SKIN: No rash or jaundice noted. EMERGENCY DEPARTMENT COURSE: 1742:The patient was evaluated in room C12B, and a complete history and physical examination were performed. 1920: I checked on the patient. I told the patient we are going to do a CAT scan of his head. 2055: I checked on the patient and talked about his chest discomfort and cardiac history. 2209: I called Rebecca to bring the patient in the hospital. 2114: I reviewed the patient's case with Dr[facility] Caballero, [facility]. He will evaluate the patient for further management. MEDICAL DECISION MAKING: Triage Nursing notes reviewed and agree them. Additional history obtained from the family. The patient's history was concerning for chills, illness and chest pain. Differential diagnosis: Etiologies such as cardiac ischemia, aortic dissection, pulmonary embolism, pneumonia, pneumothorax, musculoskeletal, infections, pericarditis, myocarditis, esophageal rupture, gastrointestinal, as well as others were entertained. Physical examination: As above. ER treatment provided: No medication given. The patient had aspirin today. On reassessment the patient felt better. Diagnostic interpretation by me: The electrocardiogram was negative for pathologic change. The labs revealed an unremarkable CBC and chemistry panel except for a slight leukocytosis. Troponin negative. D-dimer performed and was positive. Imaging studies: Chest x-ray performed and was negative for any acute pathology. CT PE study was performed no evidence of pulmonary embolism. No pneumonia. The patient has known coronary disease. He has extensive coronary artery calcification seen on CT scan. He had chest discomfort and appeared ill per his . Currently he is pain-free. Given his history a cardiac rule out seems most appropriate. I discussed this with the patient and his . They were in agreement. Consultation: A consultation was placed with the hospitalist. The case was discussed and diagnostics were reviewed. The patient was evaluated in the ER for further treatment. IMPRESSION: Left sided chest pain Malaise Leukocytosis PLAN: Admit The scribe's documentation has been prepared under my direction and personally reviewed by me in its entirety. I confirm that the note above accurately reflects all work, treatment, procedures, and medical decision making performed by me. Impression & Plan Left sided chest pain, Malaise, Leukocytosis Past Med/Surg History Medical History CAD (coronary artery disease) (Chronic) "12/23/17-DEUCE to LAD" Dyslipidemia (Chronic) Gout (Chronic) Hypertension (Chronic) GERD (gastroesophageal reflux disease) (Chronic) Surgical History History of appendectomy (Chronic) Family History Other Diabetes Hypertension Social History Feels Safe at Home: Yes Smoking Status: Never smoker Results & Data Vital Signs Vital Signs - 24 hr 08/19/18 17:19 08/19/18 17:50 08/19/18 19:01 Temperature 36.5 C Temperature Source Oral Sepsis Recent Fever Within 48 Hours No Sepsis Action Taken by Nursing No Action Required Pulse Rate 60 60 58 L Pulse Rate from SpO2 Sensor 58 L Pulse Rhythm Regular Regular Pulse Strength Normal Respiratory Rate 20 20 13 Respiratory Effort / Characteristics Non-Labored Respiratory Depth Normal Blood Pressure 162/96 H 142/83 H Blood Pressure Mean 118 102 Blood Pressure Position Sitting Pulse Oximetry 99 99 97 Oxygen Delivery Method Room Air Room Air Room Air 08/19/18 20:31 08/19/18 21:01 Temperature Temperature Source Sepsis Recent Fever Within 48 Hours Sepsis Action Taken by Nursing Pulse Rate 57 L 57 L Pulse Rate from SpO2 Sensor 57 L 56 L Pulse Rhythm Pulse Strength Respiratory Rate 12 29 H Respiratory Effort / Characteristics Respiratory Depth Blood Pressure 130/77 136/90 Blood Pressure Mean 94 105 Blood Pressure Position Pulse Oximetry 96 98 Oxygen Delivery Method Room Air Room Air Home Medications Current Medication List: was personally reviewed by me Laboratory Data Attestation: I reviewed the patient's lab results. Result diagrams: 08/19/18 18:00 08/19/18 18:00 Lab Results 08/19/18 08/19/18 08/19/18 Range/Units 18:00 18:00 18:00 WBC 11.01 H (4.8-10.8) K/uL RBC 5.00 (4.7-6.1) M/uL Hgb 15.1 (14.0-18.0) g/dL Hct 43.4 (42-52) % MCV 86.8 (80-100) fL MCH 30.2 (25-34) pg MCHC 34.8 (32-36) g/dL RDW Std Deviation 40.5 (36.4-46.3) fL RDW Coeff of Adelaida 12.7 (11.5-14.5) % Plt Count 190 (130-400) K/uL MPV 11.1 H (7.4-10.4) fL Immature Gran % (Auto) 0.2 % Neut % (Auto) 80.0 % Lymph % (Auto) 15.8 % [place] % (Auto) 3.5 % Eos % (Auto) 0.3 % Baso % (Auto) 0.2 % Immature Gran # (Auto) 0.02 (0.00-0.02) K/uL Neut # (Auto) 8.81 H (1.4-6.5) K/uL Lymph # (Auto) 1.74 (1.2-3.4) K/uL [place] # (Auto) 0.39 (0.11-0.59) K/uL Eos # (Auto) 0.03 (0-0.5) K/uL Baso # (Auto) 0.02 (0-0.2) K/uL D-Dimer 560 H* (0-500) ug/L FEU Sodium 141 (136-145) mmol/L Potassium 3.9 (3.5-5.1) mmol/L Chloride 109 H (98-107) mmol/L Carbon Dioxide 28 (21-32) mmol/L Anion Gap 3.0 (3-11) BUN 15 (7-18) mg/dl Creatinine 1.06 (0.6-1.4) mg/dl Est Cr Clr Drug Dosing 85.2 ml/min Est GFR ( Amer) 87.4 Est GFR (Non-Af Amer) 75.4 BUN/Creatinine Ratio 14.3 (10-20) Glucose 109 H (70-99) mg/dl Calcium 8.6 (8.5-10.1) mg/dl Total Bilirubin 0.6 (0.2-1) mg/dl AST 17 (15-37) U/L ALT 37 (12-78) U/L Alkaline Phosphatase 85 (45-117) U/L Troponin I < 0.015 (0-0.045) ng/ml Total Protein 7.5 (6.4-8.2) gm/dl Albumin 3.8 (3.4-5.0) gm/dl Globulin 3.7 (2.5-4.0) gm/dl Albumin/Globulin Ratio 1.0 (0.9-2) Lipase 134 (73-393) U/L Administered Medications Ioversol (Optiray 320 125ml) 90 ml IV ONCE PRN PRN Reason: Interaction Checking Stop: 08/23/18 19:42 Last Admin: 08/19/18 19:43 Dose: 90 ml Documented by: [id number] Imaging Data Radiologist's Impression: Radiology results as stated below per my review and the radiologist's interpretation: XR chest 1V portable CLINICAL HISTORY: Chest Pain COMPARISON STUDY: Chest CT September 17, 2017. FINDINGS: Lung volumes are at the lower limits of normal. There is no pneumothorax or pleural effusion. Linear left lung opacities favor atelectasis or scarring. These are unchanged. No evidence for pulmonary edema. Mild cardiomegaly is noted. IMPRESSION: 1. No acute cardiopulmonary findings. 2. Mild cardiomegaly. Electronically signed by: Rosendo Contreras M.D. 08/19/2018 5:56 PM ECG Data Attestation: I personally reviewed and interpreted this ECG as follows: Indication: chest pain Rate (beats per minute): 60 Rhythm: sinus rhythm Findings: + PVC; no PAC, no ST depression and no ST elevation Blood Pressure Blood Pressure Findings: Normal blood pressure Blood Pressure Disposition: did not require urgent referral Discharge Plan Visit Data Chief Complaint: Cardiac Assessment Stated Complaint: CHILLS,CHEST DISCOMFORT ED Provider: Benjamin Romero Discharge Problem: Left sided chest pain, Malaise, Leukocytosis Patient Disposition: Being Evaluated by Hospitalist Forms Stand Alone Forms: [facility] Prescriptions Prescriptions: No Action losartan 50 mg tablet 50 mg PO DAILY RF: 0 atorvastatin 40 mg tablet 40 mg PO DAILY RF: 0 clopidogrel 75 mg tablet 75 mg PO DAILY RF: 0 aspirin [Aspir-81] 81 mg Tablet,Delayed Release (Dr/Ec) 81 mg PO DAILY RF: 0 lansoprazole 30 mg capsule,delayed release(DR/EC) 30 mg PO DAILY RF: 0 allopurinol 300 mg tablet 300 mg PO DAILY RF: 0 Referrals Referrals: Karuna Price MD [Primary Care Provider] - Discharge Problem: Leukocytosis Qualifiers: Leukocytosis type: unspecified Qualified Code(s): D72.829 - Elevated white blood cell count, unspecified The scribe's documentation has been prepared under my direction and personally reviewed by me in its entirety. I confirm that the note above accurately reflects all work, treatment, procedures, and medical decision making performed by me.
[2018-08-19 19:18] LABS: D Dimer 560 ug/L FEU (0-500)
[2018-08-19] MEDS ORDERED: OPTIRAY 320 125ml IV PRN (19:43)
--- NOTE | 2018-08-19 19:58 | CT Scan Report ---
CT ANGIOGRAPHY OF THE CHEST, PULMONARY EMBOLUS PROTOCOL CLINICAL HISTORY: chest pain, +dimer, ?PE COMPARISON STUDY: Chest CT September 17, 2017. Chest radiograph performed earlier today. TECHNIQUE: Following IV administration of 90 mL of Optiray-320, helical axial images of the chest wer e obtained utilizing the pulmonary embolus protocol. Maximal intensity projections and sagittal and coronal reformats were viewed on an independent 3D workstation. IV contrast was administered without complication. Automated exposure control was utilized for the study. A dose lowering technique was utilized adhering to the principles of ALARA. CT DOSE: 558.32 mGy.cm FINDINGS: No pulmonary emboli are identified. There is no thoracic aortic dissection. The heart is m oderately enlarged. There is extensive coronary artery calcification. No pericardial effusion is note d. There is no thoracic lymphadenopathy. Central airways are patent. Groundglass opacities within the lungs with mosaic attenuation are noted. There is no consolidation. There is mild bronchial wall thi ckening. Thorax and upper abdomen are unremarkable. IMPRESSION: 1. No pulmonary emboli identified. 2. No consolidation to suggest pneumonia. Mild groundglass opacities and mosaic attenuation which may reflect atelectasis or air-trapping. 3. Moderate cardiomegaly. Extensive coronary artery calcification. Electronically signed by: Rosendo Contreras M.D. 08/19/2018 7:56 PM
--- NOTE | 2018-08-19 22:30 | History & Physical Report ---
Date of Service August 19, 2018 Assessment & Plan (1) Chest pain: 62M WITH HX OF CAD S/P STENT ON 11/2017 PRESENTS WITH FEELING OF HEART FALLING DOWN IN THE CHEST AND CHILLS. CHILLS IMPROVED BUT STILL HAS FUNNY FEELING IN THE CHEST WILL RULE OUT ACS INITIAL EKG AND TROPONIN NEGATIVE WILL FOLLOW SERIAL CE AND ECHO MONITOR ON TELE CARDIOLOGY CONSULT IN AM Present on Admission?: Yes (2) CAD (coronary artery disease): S/P STENT TO LAD ON ASPIRIN, PLAVIX AND STATIN FOLLOW ECHO Present on Admission?: Yes (3) Dyslipidemia: ON LIPITOR WILL FOLLOW LIPID PROFILE Present on Admission?: Yes (4) Hypertension: ON LOSARTAN WILL MONITOR Present on Admission?: Yes (5) Gout: ON ALLOPURINOL Present on Admission?: Yes (6) GERD (gastroesophageal reflux disease): ON PREVACID Present on Admission?: Yes History of Present Illness Chief Complaint: Chest pain Primary Care Provider: Karuna Price This is a 62-year-old male with past medical history significant for CAD status post stent 6 months ago, hypertension, hyperlipidemia, allergic rhinitis, fatty liver, GERD, gout presents with chest discomfort. Patient was having shortness of breath on exertion and had a stress test which was equivocal and is status post elective cardiac cath in November 2017 and found to have a mid LAD lesion status post drug-eluting stent. Since then he gets chest pain on and off cardiology is aware of it. He says he ambulates okay without any chest pains. Today while he was sitting on a chair he felt like his heart is falling down and also foot was feeling chilly. It lasted about 2 hours. Currently in the ER chills got resolved but he still has some funny feeling in the chest. Denies any shortness of breath or cough. No fevers. No headache or dizziness. No abdominal pain. Currently resting comfortably and hemodynamically stable. Allergies Allergy/AdvReac Type Severity Reaction Status Date / Time No Known Allergies Allergy Mild Verified 02/27/07 18:27 Home Medications Home Medications Medication Instructions Recorded Confirmed Type allopurinol 300 mg PO DAILY 08/19/18 08/19/18 History aspirin [Aspir-81] 81 mg PO DAILY 08/19/18 08/19/18 History atorvastatin 40 mg PO DAILY 08/19/18 08/19/18 History clopidogrel 75 mg PO DAILY 08/19/18 08/19/18 History lansoprazole 30 mg PO DAILY 08/19/18 08/19/18 History losartan 50 mg PO DAILY 08/19/18 08/19/18 History Past Med/Surg History Medical History CAD (coronary artery disease) (Chronic) "12/23/17-DEUCE to LAD" Dyslipidemia (Chronic) Gout (Chronic) Hypertension (Chronic) GERD (gastroesophageal reflux disease) (Chronic) Surgical History History of appendectomy (Chronic) Family History Other Diabetes Hypertension Social History Preferred Language: Pakistani Communication Ability: Effective Lockstitch Collar Setter Required: No Beliefs That Will Affect Care: None Current Living Situation: Spouse Feels Safe at Home: Yes Safety Concerns: Feels Safe At This Time Smoking Status: Never smoker Hx Alcohol Use: No Hx Substance Use: No Immunizations: Tdap vaccine on 02/12/2011 Review of Systems Constitutional- no fever Eyes- no acute visual changes ENT- no sore throat Pulmonary- no cough, no wheezing, no shortness of breath Cardiac- Has funny feeling in the chest pain, no palpitations, no dependent edema GI- no nausea, no vomiting, no diarrhea, no melena, no hematochezia - no dysuria, no hematuria Derm- no rashes Hematologic- no unusual bruising, no unusual bleeding Neuro- no headaches, no dizziness Physical Exam Vital Signs (Past 24 Hours): Last Vital Signs Temp 36.5 C 08/19/18 17:19 Pulse 57 L 08/19/18 21:01 Resp 29 H 08/19/18 21:01 BP 136/90 08/19/18 21:01 Pulse Ox 98 08/19/18 21:01 Physical Exam: General- Not in distress Head- atraumatic Eyes- PERRL, anicteric ENT- oropharynx clear Neck- supple, no JVD, no adenopathy, carotids +2/2, no bruits appreciated Lungs- clear to auscultation and percussion Heart- regular rhythm; no murmur, no gallop, no rub appreciated Abdomen- normal bowel sounds, soft, nontender, no masses Extremities- no pretibial edema, no erythema Neuro- alert, oriented x 3; PERRL, no facial palsy; no dysarthria;non focal Skin- warm & dry Results & Data Laboratory Results Laboratory Results - last 24 hr 08/19/18 08/19/18 08/19/18 18:00 18:00 18:00 WBC 11.01 H RBC 5.00 Hgb 15.1 Hct 43.4 MCV 86.8 MCH 30.2 MCHC 34.8 RDW Std Deviation 40.5 RDW Coeff of Adelaida 12.7 Plt Count 190 MPV 11.1 H Immature Gran % (Auto) 0.2 Neut % (Auto) 80.0 Lymph % (Auto) 15.8 [place] % (Auto) 3.5 Eos % (Auto) 0.3 Baso % (Auto) 0.2 Immature Gran # (Auto) 0.02 Neut # (Auto) 8.81 H Lymph # (Auto) 1.74 [place] # (Auto) 0.39 Eos # (Auto) 0.03 Baso # (Auto) 0.02 D-Dimer 560 H* Sodium 141 Potassium 3.9 Chloride 109 H Carbon Dioxide 28 Anion Gap 3.0 BUN 15 Creatinine 1.06 Est Cr Clr Drug Dosing 85.2 Est GFR ( Amer) 87.4 Est GFR (Non-Af Amer) 75.4 BUN/Creatinine Ratio 14.3 Glucose 109 H Calcium 8.6 Total Bilirubin 0.6 AST 17 ALT 37 Alkaline Phosphatase 85 Troponin I < 0.015 Total Protein 7.5 Albumin 3.8 Globulin 3.7 Albumin/Globulin Ratio 1.0 Lipase 134 Diagnostic Findings CXR: 1. No acute cardiopulmonary findings. 2. Mild cardiomegaly. CTA CHEST: 1. No pulmonary emboli identified. 2. No consolidation to suggest pneumonia. Mild groundglass opacities and mosaic attenuation which may reflect atelectasis or air-trapping. 3. Moderate cardiomegaly. Extensive coronary artery calcification. ECG Additional Comments: ECG: NSR WITH PVC'S AT RATE OF 60. NO ACUTE ST CHANGES SEEN. Code Status & VTE Plan Code Status FULL CODE VTE Prophylaxis Plan VTE Prophylaxis will be ordered: Yes
[2018-08-19] MEDS ORDERED: NITROGLYCERIN SL 0.4 MG/TAB TAB SL PRN (23:42)
[2018-08-19] MEDS ORDERED: ONDANSETRON INJ 2 MG/ML 2 ML VIAL IV PRN (23:42)
[2018-08-19] MEDS ORDERED: ACETAMINOPHEN 325 MG TAB PO PRN (23:42)
[2018-08-20] MEDS ORDERED: ALBUTEROL HFA 8 GM INHALER INH PRN (03:56)
[2018-08-20 04:08] LABS: Basophils # (auto) 0.02 K/uL (0-0.2); Basophils % (auto) 0.2 %; Eosinophils # (auto) 0.12 K/uL (0-0.5); Eosinophils % (auto) 1.4 %; Hematocrit (blood only) 41.5 % (42-52); Hemoglobin 14.2 g/dL (14.0-18.0); Immature Granulocytes # (auto) 0.02 K/uL (0.00-0.02); Immature Granulocytes % (auto) 0.2 %; Lymphocytes # (auto) 3.21 K/uL (1.2-3.4); Lymphocytes % (auto) 37.5 %; Mean Corpuscular Hgb Conc 34.2 g/dL (32-36); Mean Corpuscular Volume 87.2 fL (80-100); Mean Platelet Volume 10.8 fL (7.4-10.4); Monocytes # (auto) 0.55 K/uL (0.11-0.59); Monocytes % (auto) 6.4 %; Neutrophils # (auto) 4.63 K/uL (1.4-6.5); Neutrophils % (auto) 54.3 %; Platelet Count 169 K/uL (130-400); RDW Coefficient of Variation 12.7 % (11.5-14.5); RDW Standard Deviation 40.5 fL (36.4-46.3); Red Blood Count 4.76 M/uL (4.7-6.1); White Blood Count 8.55 K/uL (4.8-10.8)
[2018-08-20 04:25] LABS: BUN Creatinine Ratio 14.6 (10-20); Calcium 8.2 mg/dl (8.5-10.1); Est GFR (African American) 99.7; Est GFR (Non-African American) 86.1; Potassium 3.6 mmol/L (3.5-5.1)
[2018-08-20 04:29] LABS: Chol HDL Ratio 3; Cholesterol 149 mg/dl (0-200); HDL Cholesterol 44 mg/dl; LDL Cholesterol Calculated 88 mg/dl; Triglycerides 84 mg/dl (0-150); Troponin I < 0.015 ng/ml (0-0.045); VLDL Cholesterol 17 mg/dl
[2018-08-20] MEDS ORDERED: PERFLUTREN LIPID MICROSPHERE (DEFINITY) IV ONE (07:45)
[2018-08-20] MEDS ORDERED: ATORVASTATIN 40 MG TAB PO SCH (09:00)
[2018-08-20] MEDS ORDERED: CLOPIDOGREL BISULFATE 75 MG TAB PO SCH (09:00)
[2018-08-20] MEDS ORDERED: PANTOprazole 40 MG TAB PO SCH (09:00)
[2018-08-20] MEDS ORDERED: ASPIRIN 81 MG ECTAB PO SCH (09:00)
[2018-08-20] MEDS ORDERED: ALLOPURINOL 300 MG TAB PO SCH (09:00)
[2018-08-20] MEDS ORDERED: LOSARTAN POTASSIUM 50 MG TAB PO SCH (09:00)
--- NOTE | 2018-08-20 12:19 | Cardiology Consultation ---
Date of Consultation August 20, 2018 Assessment & Plan (1) Chest pain: Atypical chest discomfort. I believe his discomfort is noncardiac. I do not believe any additional cardiac testing is indicated at this time. (2) CAD (coronary artery disease): Drug-eluting stent last summer and he has been stable following that procedure. His cardiac catheterization showed single-vessel coronary artery disease. (3) Leukocytosis: (4) Fever: The patient had chills on admission. Slight white count elevation on his initial blood counts which resolved. Uncertain as to the etiology but it could be a viral illness. History of Present Illness Attending Physician: Benjamin Gan MD History of Present Illness This is a 62-year-old male patient who last summer presented with chest pain and eventually underwent a cardiac catheterization that showed single-vessel coronary artery disease and received a drug-eluting stent within the LAD. His heart disease has been stable. Last evening he was asleep and he woke up with an odd feeling in his chest that he can only describe a sliding or sinking feeling. The patient then noticed some chills. He got up and decided to take a shower and afterwards he was having additional chills. No consistent story of chest pain. No shortness of breath. No dizziness or lightheadedness. No tachycardia. He presented to the emergency department, after which he was admitted for observation. He had a CT of the chest that failed to show any pulmonary emboli or other critical findings. His cardiac markers are negative. EKG showed no acute changes. His initial CBC showed a left shift but his follow-up study revealed a normal white count. He has had no fevers after admission. He denies dysuria or productive cough. No change in bowel habits. Past medical history: 1. Single vessel coronary artery disease status post PCI, drug eluting stent placement to the mid LAD on December 23, 2017 as detailed above. 2. Dyslipidemia. 3. Hypertension 4. Chronic resting bradycardia 5. Asymptomatic premature ventricular complexes 6. History of gout Allergies Allergy/AdvReac Type Severity Reaction Status Date / Time No Known Allergies Allergy Mild Verified 02/27/07 18:27 Home Medications Home Medications Medication Instructions Recorded Confirmed Type allopurinol 300 mg PO DAILY 08/19/18 08/19/18 History aspirin [Aspir-81] 81 mg PO DAILY 08/19/18 08/19/18 History atorvastatin 40 mg PO DAILY 08/19/18 08/19/18 History clopidogrel 75 mg PO DAILY 08/19/18 08/19/18 History lansoprazole 30 mg PO DAILY 08/19/18 08/19/18 History losartan 50 mg PO DAILY 08/19/18 08/19/18 History Patient History Medical History CAD (coronary artery disease) (Chronic) "12/23/17-DEUCE to LAD" Dyslipidemia (Chronic) Gout (Chronic) Hypertension (Chronic) GERD (gastroesophageal reflux disease) (Chronic) Surgical History History of appendectomy (Chronic) Family History Other Diabetes Hypertension Social History Communication Ability: Effective Beliefs That Will Affect Care: None Current Living Situation: Spouse Feels Safe at Home: Yes Safety Concerns: Feels Safe At This Time Smoking Status: Never smoker Hx Alcohol Use: No Hx Substance Use: No Review of Systems Review of Systems: See HPI for pertinent positives. All other 10 point review of systems are negative. Physical Exam Vital Signs (Past 24 Hours): Last Vital Signs Temp 36.8 C 08/20/18 11:16 Pulse 62 08/20/18 11:16 Resp 18 08/20/18 11:16 BP 136/81 08/20/18 11:16 Pulse Ox 95 08/20/18 11:16 Physical Exam: General: no acute distress and stated age Head: normocephalic, no masses, lesions, tenderness or abnormalities Eyes: conjunctiva are pink and non-injected, sclera clear Neck: supple, no adenopathy, no bruits, normal jugular venous pulse, no hepatojugular reflux Chest: normal shape and normal respiratory effort Lungs: clear to auscultation and percussion Cardiac Exam: - regular rate & rhythm, no murmurs gallops or rubs - normal S1, normal S2 Pulses: 2(+) throughout Abdomen: abdomen soft, non-tender, no abnormal masses and no hepatosplenomegaly Musculoskeletal: no gait disturbance, no joint inflammation, no deforming arthritis Extremities: no edema and no cyanosis Neuro: grossly normal exam Results & Data Laboratory Results Laboratory Results - last 24 hr 08/19/18 08/19/18 08/19/18 18:00 18:00 18:00 WBC 11.01 H RBC 5.00 Hgb 15.1 Hct 43.4 MCV 86.8 MCH 30.2 MCHC 34.8 RDW Std Deviation 40.5 RDW Coeff of Adelaida 12.7 Plt Count 190 MPV 11.1 H Immature Gran % (Auto) 0.2 Neut % (Auto) 80.0 Lymph % (Auto) 15.8 [place] % (Auto) 3.5 Eos % (Auto) 0.3 Baso % (Auto) 0.2 Immature Gran # (Auto) 0.02 Neut # (Auto) 8.81 H Lymph # (Auto) 1.74 [place] # (Auto) 0.39 Eos # (Auto) 0.03 Baso # (Auto) 0.02 D-Dimer 560 H* Sodium 141 Potassium 3.9 Chloride 109 H Carbon Dioxide 28 Anion Gap 3.0 BUN 15 Creatinine 1.06 Est Cr Clr Drug Dosing 85.2 Est GFR ( Amer) 87.4 Est GFR (Non-Af Amer) 75.4 BUN/Creatinine Ratio 14.3 Glucose 109 H Calcium 8.6 Magnesium Total Bilirubin 0.6 AST 17 ALT 37 Alkaline Phosphatase 85 Troponin I < 0.015 Total Protein 7.5 Albumin 3.8 Globulin 3.7 Albumin/Globulin Ratio 1.0 Triglycerides Cholesterol LDL Cholesterol, Calc VLDL Cholesterol, Calc HDL Cholesterol Cholesterol/HDL Ratio Lipase 134 08/20/18 08/20/18 08/20/18 03:56 03:56 03:56 WBC 8.55 RBC 4.76 Hgb 14.2 Hct 41.5 L MCV 87.2 MCH 29.8 MCHC 34.2 RDW Std Deviation 40.5 RDW Coeff of Adelaida 12.7 Plt Count 169 MPV 10.8 H Immature Gran % (Auto) 0.2 Neut % (Auto) 54.3 Lymph % (Auto) 37.5 [place] % (Auto) 6.4 Eos % (Auto) 1.4 Baso % (Auto) 0.2 Immature Gran # (Auto) 0.02 Neut # (Auto) 4.63 Lymph # (Auto) 3.21 [place] # (Auto) 0.55 Eos # (Auto) 0.12 Baso # (Auto) 0.02 D-Dimer Sodium 140 Potassium 3.6 Chloride 109 H Carbon Dioxide 26 Anion Gap 5.0 BUN 14 Creatinine 0.95 Est Cr Clr Drug Dosing 95.0 Est GFR ( Amer) 99.7 Est GFR (Non-Af Amer) 86.1 BUN/Creatinine Ratio 14.6 Glucose 88 Calcium 8.2 L Magnesium 2.0 Total Bilirubin AST ALT Alkaline Phosphatase Troponin I < 0.015 Total Protein Albumin Globulin Albumin/Globulin Ratio Triglycerides 84 Cholesterol 149 LDL Cholesterol, Calc 88 VLDL Cholesterol, Calc 17 HDL Cholesterol 44 Cholesterol/HDL Ratio 3 Lipase 08/20/18 09:36 WBC RBC Hgb Hct MCV MCH MCHC RDW Std Deviation RDW Coeff of Adelaida Plt Count MPV Immature Gran % (Auto) Neut % (Auto) Lymph % (Auto) [place] % (Auto) Eos % (Auto) Baso % (Auto) Immature Gran # (Auto) Neut # (Auto) Lymph # (Auto) [place] # (Auto) Eos # (Auto) Baso # (Auto) D-Dimer Sodium Potassium Chloride Carbon Dioxide Anion Gap BUN Creatinine Est Cr Clr Drug Dosing Est GFR ( Amer) Est GFR (Non-Af Amer) BUN/Creatinine Ratio Glucose Calcium Magnesium Total Bilirubin AST ALT Alkaline Phosphatase Troponin I < 0.015 Total Protein Albumin Globulin Albumin/Globulin Ratio Triglycerides Cholesterol LDL Cholesterol, Calc VLDL Cholesterol, Calc HDL Cholesterol Cholesterol/HDL Ratio Lipase Medications Administered allopurinol 300 mg PO DAILY 08/19/18 [History Confirmed 08/19/18] aspirin [Aspir-81] 81 mg PO DAILY 08/19/18 [History Confirmed 08/19/18] atorvastatin 40 mg PO DAILY 08/19/18 [History Confirmed 08/19/18] clopidogrel 75 mg PO DAILY 08/19/18 [History Confirmed 08/19/18] lansoprazole 30 mg PO DAILY 08/19/18 [History Confirmed 08/19/18] losartan 50 mg PO DAILY 08/19/18 [History Confirmed 08/19/18] Home Medications Acetaminophen (Tylenol) 650 mg PO Q4H PRN PRN Reason: Pain or Fever Stop: 09/18/18 23:41 Albuterol (Ventolin Hfa) 2 puffs INH Q4H PRN PRN Reason: Shortness Of Breath Or Wheezing Stop: 09/19/18 03:55 Allopurinol (Zyloprim) 300 mg PO DAILY [facility] Stop: 09/19/18 08:59 Last Admin: 08/20/18 08:29 Dose: 300 mg Documented by: Aspirin (Ecotrin Ectab) 81 mg PO DAILY [facility] Stop: 09/19/18 08:59 Last Admin: 08/20/18 08:29 Dose: 81 mg Documented by: Atorvastatin Calcium (Lipitor) 40 mg PO DAILY [facility] Stop: 09/19/18 08:59 Last Admin: 08/20/18 08:29 Dose: 40 mg Documented by: Clopidogrel Bisulfate (Plavix) 75 mg PO DAILY [facility] Stop: 09/19/18 08:59 Last Admin: 08/20/18 08:29 Dose: 75 mg Documented by: Losartan Potassium (Cozaar) 50 mg PO DAILY [facility] Stop: 09/19/18 08:59 Last Admin: 08/20/18 08:29 Dose: 50 mg Documented by: Nitroglycerin (Nitrostat) 0.4 mg SL UD PRN PRN Reason: Chest Pain Stop: 09/18/18 23:41 Ondansetron HCl (Zofran) 4 mg IV Q6H PRN PRN Reason: Nausea Stop: 09/18/18 23:41 Pantoprazole Sodium (Protonix) 40 mg PO DAILY [facility] Stop: 09/19/18 08:59 Last Admin: 08/20/18 08:29 Dose: 40 mg Documented by: (1) Leukocytosis Leukocytosis type: unspecified Qualified Code(s): D72.829 - Elevated white blood cell count, unspecified
--- NOTE | 2018-08-20 19:50 | Ultrasound Report ---
ABDOMINAL ULTRASOUND, RIGHT UPPER QUADRANT HISTORY: Right upper quadrant pain.. COMPARISON: None. FINDINGS: Pancreas: Obscured by overlying bowel gas. Liver: The liver is echogenic consistent with fatty change. Gallbladder: No gallbladder wall thickening. No gallstones. CBD: 3 mm. Right kidney: No hydronephrosis. IMPRESSION: 1. Hepatic steatosis. 2. Normal gallbladder. No gallstones. 3. The pancreas was obscured by overlying bowel gas. Electronically signed by: Robert Kidd M.D. 08/20/2018 7:49 PM
--- NOTE | 2018-08-20 20:21 | Hospitalist Progress Note ---
Date of Service August 20, 2018 Assessment & Plan (1) Chest pain: History of ischemic heart disease as detailed in the admission history and physical. Developed chest pain at rest on day of admission, about 1 hour after eating a piece of pizza. Symptoms were vague. [place] weak and lightheaded. Did not experience palpitations, dyspnea, nausea, vomiting. Seen in consultation by Cardiology. Serial troponins were negative. No acute EKG changes. Echocardiogram demonstrated normal left ventricular systolic function and wall motion. No need for further cardiac evaluation. CTA of chest without show any evidence of pulmonary embolism or aortic pathology. LFTs were normal. Ultrasound of right upper quadrant demonstrated previously diagnosed fatty liver, no biliary tract abnormalities. History of GERD. Continue PPI. Consider barium swallow if patient has recurrent/ongoing symptoms. Consider possibility that arrhythmia causes symptoms. Noted to have sinus bradycardia/normal sinus rhythm with PVCs on telemetry. Consider outpatient cardiac monitoring with ZIO patch. (2) CAD (coronary artery disease): History of ischemic heart disease, status post PCI to LAD. No evidence of acute coronary syndrome as discussed above. Continue aspirin, clopidogrel, losartan, statin. (3) GERD (gastroesophageal reflux disease): Continue lansoprazole. (4) Hypertension: Continue losartan. (5) Dyslipidemia: Calculated LDL = 88. Continue atorvastatin. (6) Gout: Continue allopurinol. (7) DVT prophylaxis: Low risk for VTE per IMPROVE risk assessment model. Ambulating. (8) Discharge planning issues: Discharged to home. Family Medicine follow-up with Dr. Price. Subjective Recheck for chest pain. Patient seen in their room around 1355. Family visiting. Feels better. No further episodes of chest discomfort. No cough or SOB. No nausea or vomiting. Telemetry data reviewed- no arrhythmias except for occasional PVCs. Physical Exam Vital Signs (Past 24 Hours): Last Vital Signs Temp 36.9 C 08/20/18 15:23 Pulse 53 L 08/20/18 15:23 Resp 16 08/20/18 15:23 BP 122/74 08/20/18 15:23 Pulse Ox 95 08/20/18 15:23 Constitutional: no acute distress Respiratory: no respiratory distress Auscultation: lungs clear to auscultation bilaterally Cardiovascular: Rate/Rhythm: regular rate and regular rhythm Heart Sounds: no gallop, no murmur and no cardiac rub Vessels: no JVD Extremities: no calf tenderness and no edema Gastrointestinal (Abdomen): normal bowel sounds, soft, nontender, no hepatosplenomegaly Skin: no rashes, warm and dry Psychiatric: Orientation: alert and oriented x 3 Results & Data ECG Additional Comments: EKG performed this morning at 0723 reviewed and demonstrated sinus bradycardia with occasional PVCs, no acute changes.
--- NOTE | 2018-08-21 18:24 | Discharge Summary ---
Date of Service Date of admission: 08/19/18 Date of discharge: 08/20/18 Admission HPI Per Admitting Provider This is a 62-year-old male with past medical history significant for CAD status post stent 6 months ago, hypertension, hyperlipidemia, allergic rhinitis, fatty liver, GERD, gout presents with chest discomfort. Patient was having shortness of breath on exertion and had a stress test which was equivocal and is status post elective cardiac cath in November 2017 and found to have a mid LAD lesion status post drug-eluting stent. Since then he gets chest pain on and off cardiology is aware of it. He says he ambulates okay without any chest pains. Today while he was sitting on a chair he felt like his heart is falling down and also foot was feeling chilly. It lasted about 2 hours. Currently in the ER chills got resolved but he still has some funny feeling in the chest. Denies any shortness of breath or cough. No fevers. No headache or dizziness. No abdominal pain. Currently resting comfortably and hemodynamically stable. Admission Exam Per Admitting Provider General- Not in distress Head- atraumatic Eyes- PERRL, anicteric ENT- oropharynx clear Neck- supple, no JVD, no adenopathy, carotids +2/2, no bruits appreciated Lungs- clear to auscultation and percussion Heart- regular rhythm; no murmur, no gallop, no rub appreciated Abdomen- normal bowel sounds, soft, nontender, no masses Extremities- no pretibial edema, no erythema Neuro- alert, oriented x 3; PERRL, no facial palsy; no dysarthria;non focal Skin- warm & dry Principal Diagnosis chest pain- CA and PE ruled out ischemic heart disease hypertension GERD Discharge Data Allergies Allergy/AdvReac Type Severity Reaction Status Date / Time No Known Allergies Allergy Mild Verified 02/27/07 18:27 Consultations 08/19/18 21:13 ED Decision to Admit Stat 08/19/18 23:42 Consult Case Management - Discharge Planning Routine 08/20/18 08:00 Consult Cardiology Routine Ordered Studies 08/19/18 19:18 CT angio chest PE protocol Stat 08/20/18 14:02 US gallbladder Urgent Hospital Course (1) Chest pain: History of ischemic heart disease as detailed in the admission history and physical. Developed chest pain at rest on day of admission, about 1 hour after eating a piece of pizza. Symptoms were vague. [place] weak and lightheaded. Did not experience palpitations, dyspnea, nausea, vomiting. Seen in consultation by Cardiology. Serial troponins were negative. No acute EKG changes. Echocardiogram demonstrated normal left ventricular systolic function and wall motion. No need for further cardiac evaluation. CTA of chest without show any evidence of pulmonary embolism or aortic pathology. LFTs were normal. Ultrasound of right upper quadrant demonstrated previously diagnosed fatty liver, no biliary tract abnormalities. History of GERD. Continue PPI. Consider barium swallow if patient has recurrent/ongoing symptoms. Consider possibility that arrhythmia causes symptoms. Noted to have sinus bradycardia/normal sinus rhythm with PVCs on telemetry. Consider outpatient cardiac monitoring with ZIO patch. (2) CAD (coronary artery disease): History of ischemic heart disease, status post PCI to LAD. No evidence of acute coronary syndrome as discussed above. Continue aspirin, clopidogrel, losartan, statin. (3) GERD (gastroesophageal reflux disease): Continue lansoprazole. (4) Hypertension: Continue losartan. (5) Dyslipidemia: Calculated LDL = 88. Continue atorvastatin. (6) Gout: Continue allopurinol. (7) Leukocytosis: White count minimally elevated at time of admission at 11,010. Repeat white count day of discharge was 8550. No fever. No signs, symptoms, or radiographic evidence of infection. No need for further evaluation unless status changes. (8) DVT prophylaxis: Low risk for VTE per IMPROVE risk assessment model. Ambulating. (9) Discharge planning issues: Discharged to home. Family Medicine follow-up with Dr. Price. Total Time Total Time Spent Total Time Spent (In Minutes): 30 Discharge Plan Discharge Items Patient Disposition: Home - Self-Care Reason For Visit: CHEST PAIN Discharge Diagnosis: chest discomfort- no sign of heart attack, blood clots in lungs, or gallbladder attack Condition: Good Discharge Goals: Decrease discomfort and Improve disease control Activity: Resume your previous activity Non-emergency contact: Primary Care Provider, Hospitalist and [employer] Call non-emergency contact if: you have any medication questions and your symptoms worsen Follow-up/Referrals: Karuna Price MD [Primary Care Provider] - (Office will contact you with follow-up appointment.) Diet: Heart Healthy and Low Fat Addtl Provider Instructions: APPOINTMENTS: FAMILY MEDICINE Dr. Price Office will contact you. CARDIOLOGY Dr. Sumner as scheduled. OTHER INSTRUCTIONS: Consider barium swallow test to check your esophagus if symptoms come back. Ask Dr. Price's office to schedule a ZIO patch for you to monitor heart beat as an outpatient. Seek medical attention if you have: * temperature above 101 * chest pain or trouble breathing * abdominal pain, nausea, vomiting * diarrhea, dark stools or bloody stools * any unanswered questions or concerns Call 911 if symptoms are severe. Call if you have any questions or problems. My cell # is [phone]. You can also reach a [facility] hospitalist on duty at [facility] 24 hours a day by calling [phone]. Prescriptions: Continued losartan 50 mg tablet 50 mg PO DAILY RF: 0 atorvastatin 40 mg tablet 40 mg PO DAILY RF: 0 clopidogrel 75 mg tablet 75 mg PO DAILY RF: 0 aspirin [Aspir-81] 81 mg Tablet,Delayed Release (Dr/Ec) 81 mg PO DAILY RF: 0 lansoprazole 30 mg capsule,delayed release(DR/EC) 30 mg PO DAILY RF: 0 allopurinol 300 mg tablet 300 mg PO DAILY RF: 0 Stand-Alone Forms: My [facility] Discharge Orders: Discharge Order (Routine); Ordered 08/20/18 Ordered By: Benjamin Gan Admission Data Admit Date/Time: 08/19/18 22:30 Attending Provider: Benjamin Gan Admit Provider: Erich Caballero Primary Care Provider: Karuna Price Other Providers: Erich Caballero ; Ayo Venegas ; Palmer Barron ; Nick Lopez ; Duncan Clinton ; Matias Sumner ; Ceferino Agosto ; Chantel Taveras ; Jodie Gerber Service: Telemetry Medical Other Interventions: Discharge Summary Assessment (RN) Last Done: 08/20/18 20:40 DC Date/Time DO NOT enter until pt leaves facility: 08/20/18 20:49
== END 2018-08-20 20:49 | disposition home or self-care (01) ==
LOC: 2W 17:12 → ED 17:12 → 2W 23:01

== ENCOUNTER 2021-09-11 09:28 | Inpatient (IN) ==
--- NOTE | 2021-09-11 10:35 | History & Physical Bridge Note ---
Date of Service September 11, 2021 History & Physical Bridge Note I have examined the patient, reviewed the History & Physical and in the interval since the performance of the History & Physical I have noted the following changes of clinical significance: no changes noted The patient has a previous LAD stent placed several years ago. He had a equivocal stress test performed due to recent chest pain. He is here today for cardiac catheterization. I have explained the risk, benefit and intent of the procedure to him and he is willing to proceed.
--- NOTE | 2021-09-11 10:36 | Pre Anesthesia Assessment ---
Date of Service September 11, 2021 Pre Sedation Assessment Vital Signs Temp Pulse Resp BP Pulse Ox 09/11/21 10:29 37.2 C 62 18 153/95 H 98 Pre-Sedation Airway Assessment Smoking Status: Never smoker Short, Thick Neck: Yes Thyromental Distance: < 3.5 Finger Breadths Oral Cavity: + WNL Mallampati Class: III ASA: ASA3 NPO Status Date of Last Intake of Fluids: 09/11/21 Time of Last Intake of Fluids: 06:00 Date of Last Intake of Solid Food: 09/10/21 Time of Last Intake of Solid Foods: 18:00 Notes The planned sedation has been discussed with the patient. Informed Consent was obtained. I have identified the patient, determined the appropriateness of sedation and have assessed the patient immediately prior to the procedure. All medicine(s) and interventions are by my order.
[2021-09-11] MEDS ORDERED: fentaNYL citrate 100 MCG/2 ML VIAL ONE (12:06)
[2021-09-11] MEDS ORDERED: MIDAZOLAM HCL 1 MG/ML 2ML VIAL ONE (12:06)
[2021-09-11] MEDS ORDERED: niCARdipine HCL INJ 2.5 MG/ML 10 ML AMP ONE (12:06)
[2021-09-11] MEDS ORDERED: HEPARIN (PORCINE) 1000 UNIT/ML 10 ML (CATH LAB USE ONLY) ONE (12:06)
[2021-09-11] MEDS ORDERED: NITROGLYCERIN/D5W 100MCG/ML 20ML SYR ONE (12:07)
--- NOTE | 2021-09-11 12:56 | Cardiac Catheterization ---
Date of Service September 11, 2021 Cardiac Cath Report Cardiac Cath Report Procedure: Coronary angiography History: This is a 66-year-old male patient with a previous history of a coronary stent in the LAD. He presented with chest discomfort and had an equivocal exercise stress test. Patient has been referred for cardiac catheterization. Procedure summary: After informed consent was obtained the patient was brought to the cardiac catheterization lab where access was obtained using a retrograde Salinger technique from the right femoral artery. The right radial artery was not approach due to an abnormal Barbeau. Preformed 5 Sammarinese diagnostic catheters were utilized for the coronary angiograms. Following the procedure the patient had the arterial site closed with a minx device and was returned to the holding area the Special Library Librarian in stable condition. ACC data: Start time 12:18 AM End time 10:37 AM Opening aortic pressure 157/97 Closing aortic pressure 159/100 LV pressurevalve not crossed Sedation 2 mg intravenous Versed IV fluid 90 cc normal saline Contrast 67 cc Visipaque Fluoroscopy time 2.7 minutes Radiation 1059 mGy DAP 100.75 [place]ays per centimeter squared Left dominant system AUC score 7 Coronary angiography: The left main trunk is short with a dual ostium. The left coronary artery is hyperdominant. The left circumflex artery gives off 3 large marginal branches supplying the lateral and posterior lateral myocardium and a fourth marginal branch supplying the posterior septum. The left circumflex artery is widely patent. The previous stented site in the proximal and mid LAD is widely patent. The LAD gives off a small first diagonal and a medium sized second diagonal and then is small in caliber as it travels distally. The LAD system is widely patent. The right coronary artery is small and rudimentary. Right coronary artery is very small in caliber and does have distal disease before the takeoff of a small marginal branch. Summary: The patient has a hyperdominant left system. Left coronary artery is widely patent including the previous stented site in the LAD. Right coronary artery is very small and rudimentary with some distal disease before the takeoff of the small marginal branch. Recommendations: Continued medical management of the patient's coronary artery disease.
--- NOTE | 2021-09-11 13:00 | Post Anesthesia Assessment ---
Date of Service September 11, 2021 Post Sedation Assessment Vital Signs Temp Pulse Pulse Resp BP BP Pulse Ox 09/11/21 10:34 37.2 C 65 18 153/95 H 99 09/11/21 10:29 37.2 C 62 18 153/95 H 98 Discharge Sedation Level of Care: Fast Track Phase II Post Sedation Plan On clinical assessment, the patient appears to have tolerated the sedation without complications. Patient is recovering as anticipated. Patient will continue to be monitored by nursing and may be discharged when sedation discharge criteria are met per below protocol. Upon Completions of procedure up to 15 minutes continue every 5 minute vital signs and the P.A.R. score; then discharge to a Phase I or Fast Track to Phase II per the following guidelines: * Discharge Patient to appropriate Phase II area if PAR is 8 or greater or return to pre- procedure baseline. The post - procedure orders will be as directed. * If PAR score is less than 8 or not return to pre-procedure baseline then patient will follow Phase I monitoring till PAR is reached for Phase II. The Phase I may be done in procedure room or may call to secure a Phase I area. * If naloxone or flumazenil are used for reversal, hold in Phase I for continued monitoring from when last reversal dose was given for a minimum of 60 minutes or longer pending the nurse and/or physician discretion of patient condition before discharge to Phase II. Please call the Sedation Physician to re-evaluate and complete post-note for discharge to Phase II area. Do NOT discharge from procedure sedation or Phase 1 until post- sedation evaluation note is complete by procedure /sedation MD Sedation Discharge Instructions to be given to the patient at discharge to home.
[2021-09-11] MEDS ORDERED: MAGNESIUM HYDROXIDE SUSP 30 ML UDC PO PRN (15:21)
[2021-09-11] MEDS ORDERED: ALUMINUM/MAGNESIUM SUSP 30 ML UDC PO PRN (15:21)
[2021-09-11] MEDS ORDERED: ACETAMINOPHEN 325 MG TAB PO PRN (15:21)
--- NOTE | 2021-09-11 15:58 | Communication Note ---
Date of Service: September 11, 2021 Following the cardiac catheterization and just as the patient was to be ambulated and discharged home he began to have double vision. No aphasia or lateralizing signs. He has full movement of his extraocular muscles. Pupils are equal and reactive to light. A stroke alert will be called. The patient will be admitted to the hospitalist service.
--- NOTE | 2021-09-11 16:14 | CT Scan Report ---
CT head/brain wo con CLINICAL HISTORY: diplopia Technique: Contiguous axial CT images of the head were acquired from the base of the skull to the olivier chloe without intravenous contrast administration. Images were viewed in brain, subdural and [facility]. Automated dose lowering techniques and/or adjustment according to patient size were utilized for this exam. CT DOSE: 1219.50 mGycm Comparison: None available at the time of this dictation. Findings: The ventricles, basal cisterns, and cerebral sulci are normal. There is no acute intracranial hemorrh age or evidence of acute territorial infarction. Neither mass effect, shift of the midline structures , nor abnormal extra-axial fluid collections are shown. Soft tissue thickening is seen about the ethmoid sinuses. The orbits appear normal. There are no acu te fractures of the calvaria or scalp swelling. Impression: No acute intracranial hemorrhage, no evidence of acute territorial infarction or other acute intracra nial disease process. ACT 112: Negative or not required by law. Electronically signed by: Stone Gage M.D. 09/11/2021 4:12 PM
--- NOTE | 2021-09-11 16:57 | History & Physical Report ---
Date of Service September 11, 2021 Assessment & Plan (1) Double vision: Plan: Stroke like Symptoms: R/O Acute CVA DD: secondary to anesthesia given for cardiac cath Admit in Tele CT head: showed no acute pathology Stroke work up including lipid panel, A1C, MRI Brain, CTA Head/Neck, ECHO Speech and swallow eval Continue aspirin, Lipitor Started on Plavix as recommended by [facility] Neuro checks, Neurology consult PT/OT Allow permissive HTN in setting of acute CVA Gentle IV fluids given contrast use CAD Continue aspirin, statin, Lipitor HTN Hold losartan given strokelike symptoms Monitor blood pressure Gout On allopurinol GERD on PPI S/P Cardiac Cath Continue home meds DVT Px: SCDs for now Code Status Full Code Admission and Anticipated Discharge Date Admission Date: September 11, 2021 History of Present Illness Chief Complaint: Stroke like Symptoms Primary Care Provider: Karuna Price MD Patient is a 66-year-old male with history of coronary artery disease, hypertension, hyperlipidemia, GERD, gout and other medical problems presents with history of sudden onset of double vision after having elective cardiac catheterization today. Patient had an equivocal exercise stress test and was referred for an elective cardiac catheterization. Post catheterization, patient was initially thought to be discharged but developed sudden onset of double vision at around 2:30 PM today. Patient took 4 baby aspirin's this morning prior to cardiac catheterization as recommended by cardiology. He states having dizziness with change in position during my encounter. Double vision gradually improved over time. Stroke alert was initiated and on recommendations from [facility], patient was loaded with Plavix. He was thought to be not a candidate for thrombolytics as per neurology (cardiac cath through femoral artery approach). Denies any history of chest pain, SOB, palpitations, headache, weakness, numbness, slurred speech, facial deformity, bowel/bladder incontinence, nausea, vomiting, abdominal pain. CT head showed no acute findings. CTA head and neck currently pending. Allergies Allergy/AdvReac Type Severity Reaction Status Date / Time No Known Allergies Allergy Mild Verified 02/27/07 18:27 Home Medications Medication Instructions Recorded Confirmed Type allopurinol 300 mg tablet 300 mg PO DAILY 08/19/18 09/11/21 History aspirin 81 mg tablet,delayed 81 mg PO DAILY 08/19/18 09/11/21 History release (Aspir-) atorvastatin 40 mg tablet 40 mg PO DAILY 08/19/18 09/11/21 History lansoprazole 30 mg capsule,delayed 30 mg PO DAILY 08/19/18 09/11/21 History release losartan 50 mg tablet 50 mg PO DAILY 08/19/18 09/11/21 History Past Med/Surg History Medical History (Updated 09/11/21 @ 19:40 by Jeremy Su MD) CAD (coronary artery disease) "12/23/17-DEUCE to LAD" Dyslipidemia GERD (gastroesophageal reflux disease) Gout Hypertension Surgical History History of appendectomy Family History Other Diabetes Hypertension Social History Smoking Status: Never smoker Second Hand Exposure: No; Do You Dip or Chew Tobacco: No; Tobacco Cessation Education Requested by Patient: No Hx Alcohol Use: No Hx Substance Use: No Preferred Language: Gibraltarian Communication Ability: Effective Aco Coordinator Required: No Beliefs That Will Affect Care: None Current Living Situation: Spouse Other Information That Helps Us Care for You: No Feels Safe at Home: Yes Safety Concerns: Feels Safe At This Time Assistive Devices: Glasses Review of Systems Review of Systems: All systems reviewed & are unremarkable except as noted in Subjective Physical Exam Physical Exam: Physical Exam: Vitals signs as noted above General Appearance:Morbidly Obese, no apparent distress Head: normocephalic, Atraumatic Eyes: normal inspection, EOMI, + Double vision Neck: supple, Trachea midline Respiratory/Chest: Normal breath sounds, CTA, No accessory muscle use Cardiovascular: S1, S2, No murmur Abdomen/GI:Soft, Non tender, Bowel sounds present Extremities/Musculoskeletal:normal inspection, no edema Neurologic/Psych:AAOX3, grossly no focal neurological deficits Skin: normal color, warm Results & Data Results & Data ([facility]) Vital Signs (Past 12 Hours) Vital Signs Temp Pulse Pulse Resp BP BP BP 09/11/21 16:15 62 18 155/94 H 09/11/21 15:30 57 L 18 162/98 H 09/11/21 15:15 57 L 18 173/100 H 09/11/21 15:00 52 L 18 179/100 H 09/11/21 14:45 50 L 18 159/98 H 09/11/21 14:30 49 L 18 145/94 H 09/11/21 14:15 49 L 18 153/95 H 09/11/21 14:00 51 L 18 143/97 H 09/11/21 13:45 51 L 18 151/95 H 09/11/21 13:30 52 L 18 144/90 H 09/11/21 13:15 53 L 18 147/95 H 09/11/21 13:06 55 L 18 151/107 H 09/11/21 12:45 55 L 18 151/107 H 09/11/21 10:34 37.2 C 65 18 153/95 H 09/11/21 10:29 37.2 C 62 18 153/95 H Pulse Ox 09/11/21 16:15 98 09/11/21 15:30 98 09/11/21 15:15 98 09/11/21 15:00 98 09/11/21 14:45 98 09/11/21 14:30 98 09/11/21 14:15 98 09/11/21 14:00 98 09/11/21 13:45 98 09/11/21 13:30 98 09/11/21 13:15 98 09/11/21 13:06 98 09/11/21 12:45 98 09/11/21 10:34 99 09/11/21 10:29 98 Laboratory Results Short CBC 09/11/21 Range/Units 17:15 WBC 8.19 (4.8-10.8) K/uL Hgb 15.8 (14.0-18.0) g/dL Hct 45.9 (42-52) % Plt Count 190 (130-400) K/uL BMP 09/11/21 17:15 Sodium 140 Potassium 3.7 Chloride 105 Carbon Dioxide 26 BUN 13 Creatinine 1.01 Glucose 110 H Calcium 9.1 Liver Function 09/11/21 Range/Units 17:15 Total Bilirubin 1.0 (0.2-1.0) mg/dl AST 17 (13-39) U/L ALT 27 (7-52) U/L Alkaline Phosphatase 80 (34-104) U/L Albumin 4.1 (3.4-5.0) gm/dl Diagnostic Findings CT head:No acute intracranial hemorrhage, no evidence of acute territorial infarction or other acute intracranial disease process. Code Status & VTE Plan VTE Prophylaxis Plan VTE Prophylaxis will be ordered: Yes
[2021-09-11] MEDS ORDERED: PHARMACIST DISCHARGE MED REC CONSULT PRN (16:58)
[2021-09-11 17:26] LABS: Basophils # (auto) 0.02 K/uL (0-0.2); Basophils % (auto) 0.2 %; Eosinophils # (auto) 0.08 K/uL (0-0.5); Hematocrit (blood only) 45.9 % (42-52); Hemoglobin 15.8 g/dL (14.0-18.0); Immature Granulocytes # (auto) 0.01 K/uL (0.00-0.02); Immature Granulocytes % (auto) 0.1 %; Lymphocytes # (auto) 2.51 K/uL (1.2-3.4); Lymphocytes % (auto) 30.6 %; Mean Corpuscular Hemoglobin 30.8 pg (25-34); Mean Corpuscular Volume 89.5 fL (80-100); Mean Platelet Volume 11.1 fL (7.4-10.4); Monocytes # (auto) 0.69 K/uL (0.11-0.59); Monocytes % (auto) 8.4 %; Neutrophils # (auto) 4.88 K/uL (1.4-6.5); Neutrophils % (auto) 59.7 %; Platelet Count 190 K/uL (130-400); RDW Coefficient of Variation 12.8 % (11.5-14.5); Red Blood Count 5.13 M/uL (4.7-6.1); White Blood Count 8.19 K/uL (4.8-10.8)
[2021-09-11 17:29] LABS: Mean Corpuscular Hgb Conc 34.4 g/dL (32-36)
[2021-09-11 17:37] LABS: Partial Thromboplastin Ratio 0.9; Partial Thromboplastin Time 25.6 Seconds (21.0-31.0); Prothrombin Time 10.9 Seconds (9.0-12.0)
[2021-09-11] MEDS ORDERED: CLOPIDOGREL BISULFATE 300 MG TAB PO ONE (18:15)
[2021-09-11 18:20] LABS: Albumin Globulin Ratio 1.3 (0.9-2); Albumin Level 4.1 gm/dl (3.4-5.0); BUN Creatinine Ratio 12.9 (10-20); Calcium 9.1 mg/dl (8.5-10.1); Creatinine Clr Calc Pharmacy 85.3 ml/min; Est GFR (Non-African American) 77.7 ml/min; Globulin 3.1 gm/dl (2.5-4.0); Potassium 3.7 mmol/L (3.5-5.1); Total Protein 7.2 gm/dl (6.0-8.3)
[2021-09-11] MEDS ORDERED: SODIUM CHLORIDE 0.9% 500 ML IV ONE (18:32)
--- NOTE | 2021-09-11 19:30 | Magnetic Resonance Report ---
MR brain wo con HISTORY: 66 years-old Male diplopia acute strokelike symptoms with double vision COMPARISON: Head CT of same day at 4:03 PM TECHNIQUE: Multiplanar multisequence MRI of the brain was obtained without contrast FINDINGS: No restricted diffusion to suggest acute or subacute infarct. Degenerative changes of the imaged cerv ical spine. The midline structures are otherwise unremarkable. No acute intracranial hemorrhage, midl ine shift, abnormal extra-axial collection, hydrocephalus or intracranial mass. No pathologic bloomin g artifact. There are a few punctate T2/FLAIR hyperintense foci noted throughout the white matter, no nspecific however suggestive of mild chronic microvascular ischemic disease. The study is mildly varun on degraded. The cerebral venous sinuses and major arterial flow voids appear patent. Mastoid air cells are clear. [id number] mucosal thickening of the paranasal sinuses. The skull, orbits and soft tissues are unremarkable. IMPRESSION: No acute intracranial abnormality. No acute or subacute infarct. ACT 112: Negative or not required by law. The above report was generated using voice recognition software. It may contain grammatical, syntax o r spelling errors. Electronically signed by: Jhonny Masters M.D. 09/11/2021 7:28 PM
[2021-09-11] MEDS ORDERED: OPTIRAY 320 125ml IV ONE (19:54)
--- NOTE | 2021-09-11 20:37 | CT Scan Report ---
CT angio neck with con, CT angio head w con CLINICAL HISTORY: 66 years-old Male with CVA. Acute strokelike symptoms COMPARISON STUDY: Brain MRI and head CT studies of same day TECHNIQUE: Following the IV administration of 119 mL of Optiray, CT angiogram of the head and neck wa s performed from the aortic arch to the skull apex. Images are reviewed in the axial, sagittal, and c oronal planes. 3-D MIPS images are created and assessed. IV contrast was administered without complic ation. All measurements were calculated based on NASCET criteria. A dose lowering technique was util ized adhering to the principles of ALARA. CT DOSE: 547.52 mGy.cm FINDINGS: Patency of the innominate and imaged subclavian arteries. The common carotid arteries are patent. Mil d atherosclerosis of the carotid bulbs and proximal cervical segments of the internal carotid arterie s. No significant stenosis. The middle and anterior cerebral arteries are within normal limits. Ather osclerotic plaque at the origin of the left vertebral artery results in mild stenosis. The left verte bral artery is dominant. The bilateral vertebral arteries are patent. The basilar and posterior cereb ral arteries are patent. There is origin of the right posterior cerebral artery. Cerebral venou s sinuses are patent. No abnormal intracranial enhancement. Linear scarring/atelectasis of the lung apices. Unremarkable soft tissues. Mildly thickening of the p aranasal sinuses degenerative changes of the cervical spine. IMPRESSION:Mild atherosclerosis without high-grade stenosis, aneurysm, dissection or arterial occlusi on. ACT 112: Negative or not required by law. The above report was generated using voice recognition software. It may contain grammatical, syntax o r spelling errors. Electronically signed by: Jhonny Masters M.D. 09/11/2021 8:34 PM
[2021-09-12 05:37] LABS: BUN Creatinine Ratio 14.3 (10-20); Calcium 8.5 mg/dl (8.5-10.1); Chol HDL Ratio 3.7 (0-5); Creatinine Clr Calc Pharmacy 87.9 ml/min; Est GFR (African American) 93.4 ml/min; Est GFR (Non-African American) 80.6 ml/min; Potassium 3.8 mmol/L (3.5-5.1)
[2021-09-12 06:01] LABS: Basophils # (auto) 0.02 K/uL (0-0.2); Basophils % (auto) 0.3 %; Eosinophils # (auto) 0.09 K/uL (0-0.5); Eosinophils % (auto) 1.3 %; Hemoglobin 14.7 g/dL (14.0-18.0); Immature Granulocytes # (auto) 0.01 K/uL (0.00-0.02); Immature Granulocytes % (auto) 0.1 %; Lymphocytes # (auto) 1.56 K/uL (1.2-3.4); Lymphocytes % (auto) 22.4 %; Mean Corpuscular Hemoglobin 30.5 pg (25-34); Mean Corpuscular Hgb Conc 34.2 g/dL (32-36); Mean Corpuscular Volume 89.2 fL (80-100); Monocytes # (auto) 0.64 K/uL (0.11-0.59); Monocytes % (auto) 9.2 %; Neutrophils # (auto) 4.63 K/uL (1.4-6.5); Neutrophils % (auto) 66.7 %; Platelet Count 189 K/uL (130-400); RDW Coefficient of Variation 12.8 % (11.5-14.5); RDW Standard Deviation 41.6 fL (36.4-46.3); Red Blood Count 4.82 M/uL (4.7-6.1); White Blood Count 6.95 K/uL (4.8-10.8)
--- NOTE | 2021-09-12 07:18 | Hospitalist Progress Note ---
Date of Service September 12, 2021 Assessment & Plan (1) Double vision: Plan: Stroke like Symptoms: R/O Acute CVA DD: secondary to anesthesia given for cardiac cath Stroke work up including lipid panel, A1C, MRI Brain, CTA Head/Neck, ECHO ordered Admit in Tele CT head: showed no acute pathology CTA head and neck - Mild atherosclerosis without high-grade stenosis, aneurysm, dissection or arterial occlusion. MRI brain - No acute intracranial abnormality. No acute or subacute infarct. 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 Some degree the issue is academic as a treatment would not change at this point I am simply going to suggest that he be placed on dual antiplatelet therapy for 21 days and then on Plavix alone Will cont. to follow. Repeat MRI brain ordered. CAD Continue aspirin, statin, Lipitor HTN Hold losartan given strokelike symptoms Monitor blood pressure Gout On allopurinol GERD on PPI S/P Cardiac Cath Continue home meds DVT Px: SCDs for now Code Status Full Code Admission and Anticipated Discharge Date Admission Date: September 11, 2021 Subjective Patient seen in follow-up of diplopia after cardiac cath Currently patient is stable in bed, in no acute distress Reports diplopia improved however he still has some dizziness when he looks to the left, and also reports some imbalance CT head, CTA head and neck, MRI brain so far negative Patient denies any chest pain, shortness of breath, fevers, chills, headache, abdominal pain, nausea vomiting Review of Systems Review of Systems: All systems reviewed & are unremarkable except as noted in Subjective Physical Exam Physical Exam: General Appearance: Obese M, in no apparent distress Head: normocephalic, Atraumatic Eyes: normal inspection, EOMI, + Double vision seems improved if pt is looking straight Neck: supple, Trachea midline Respiratory/Chest: Normal breath sounds, CTA, No accessory muscle use Cardiovascular: S1, S2, No murmur Abdomen/GI:Soft, Non tender, Bowel sounds present Extremities/Musculoskeletal:normal inspection, no edema Neurologic/Psych:AAOX3, no facial asymmetry, speech fluent, moves extremities. Gait not assessed, pt reports imbalance. Skin: normal color, warm Results & Data Results & Data ([facility]) Vital Signs (Past 12 Hours) Vital Signs Temp Pulse Pulse Resp BP BP Pulse Ox 09/12/21 03:00 36.9 C 57 L 18 145/75 H 96 09/12/21 02:00 59 L 15 09/12/21 01:00 49 L 14 09/12/21 00:00 50 L 12 09/11/21 23:30 55 L 16 127/75 97 09/11/21 23:00 57 L 18 09/11/21 22:30 54 L 14 09/11/21 22:00 59 L 20 09/11/21 21:30 56 L 15 09/11/21 21:00 54 L 13 09/11/21 20:30 52 L 14 09/11/21 20:12 36.6 C 62 19 138/85 97 09/11/21 19:30 57 L 13 Laboratory Results 09/12/21 09/12/21 09/12/21 Range/Units 04:50 04:50 04:50 WBC 6.95 (4.8-10.8) K/uL RBC 4.82 (4.7-6.1) M/uL Hgb 14.7 (14.0-18.0) g/dL Hct 43.0 (42-52) % MCV 89.2 (80-100) fL MCH 30.5 (25-34) pg MCHC 34.2 (32-36) g/dL RDW Std Deviation 41.6 (36.4-46.3) fL RDW Coeff of Adelaida 12.8 (11.5-14.5) % Plt Count 189 (130-400) K/uL MPV 11.0 H (7.4-10.4) fL Immature Gran % (Auto) 0.1 % Neut % (Auto) 66.7 % Lymph % (Auto) 22.4 % Weber % (Auto) 9.2 % Eos % (Auto) 1.3 % Baso % (Auto) 0.3 % Neut # (Auto) 4.63 (1.4-6.5) K/uL Lymph # (Auto) 1.56 (1.2-3.4) K/uL Weber # (Auto) 0.64 H (0.11-0.59) K/uL Eos # (Auto) 0.09 (0-0.5) K/uL Baso # (Auto) 0.02 (0-0.2) K/uL Immature Gran # (Auto) 0.01 (0.00-0.02) K/uL PT (9.0-12.0) Seconds INR (0.9-1.1) APTT (21.0-31.0) Seconds PTT Ratio Sodium 139 (136-145) mmol/L Potassium 3.8 (3.5-5.1) mmol/L Chloride 108 H (98-107) mmol/L Carbon Dioxide 24 (21-32) mmol/L Anion Gap 7 (3-11) BUN 14 (6-23) mg/dl Creatinine 0.98 (0.6-1.4) mg/dl Est Cr Clr Drug Dosing 87.9 ml/min Est GFR ( Amer) 93.4 ml/min Est GFR (Non-Af Amer) 80.6 ml/min BUN/Creatinine Ratio 14.3 (10-20) Glucose 125 H (70-99(Fasting)) mg/dl POC Glucose (70-99) mg/dl Estimat Average Glucose Pending Hemoglobin A1c Pending Calcium 8.5 (8.5-10.1) mg/dl Magnesium (1.7-2.4) mg/dl Total Bilirubin (0.2-1.0) mg/dl AST (13-39) U/L ALT (7-52) U/L Alkaline Phosphatase (34-104) U/L Total Protein (6.0-8.3) gm/dl Albumin (3.4-5.0) gm/dl Globulin (2.5-4.0) gm/dl Albumin/Globulin Ratio (0.9-2) Triglycerides 90 (0-150) mg/dl Cholesterol 141 (0-200) mg/dl LDL Cholesterol, Calc 85 mg/dl VLDL Cholesterol, Calc 18 (0-30) mg/dl HDL Cholesterol 38 mg/dl Cholesterol/HDL Ratio 3.7 (0-5) 09/11/21 09/11/21 09/11/21 Range/Units 17:15 17:15 17:15 WBC 8.19 (4.8-10.8) K/uL RBC 5.13 (4.7-6.1) M/uL Hgb 15.8 (14.0-18.0) g/dL Hct 45.9 (42-52) % MCV 89.5 (80-100) fL MCH 30.8 (25-34) pg MCHC 34.4 (32-36) g/dL RDW Std Deviation 42.0 (36.4-46.3) fL RDW Coeff of Adelaida 12.8 (11.5-14.5) % Plt Count 190 (130-400) K/uL MPV 11.1 H (7.4-10.4) fL Immature Gran % (Auto) 0.1 % Neut % (Auto) 59.7 % Lymph % (Auto) 30.6 % Weber % (Auto) 8.4 % Eos % (Auto) 1.0 % Baso % (Auto) 0.2 % Neut # (Auto) 4.88 (1.4-6.5) K/uL Lymph # (Auto) 2.51 (1.2-3.4) K/uL Weber # (Auto) 0.69 H (0.11-0.59) K/uL Eos # (Auto) 0.08 (0-0.5) K/uL Baso # (Auto) 0.02 (0-0.2) K/uL Immature Gran # (Auto) 0.01 (0.00-0.02) K/uL PT 10.9 (9.0-12.0) Seconds INR 1.0 (0.9-1.1) APTT 25.6 (21.0-31.0) Seconds PTT Ratio 0.9 Sodium 140 (136-145) mmol/L Potassium 3.7 (3.5-5.1) mmol/L Chloride 105 (98-107) mmol/L Carbon Dioxide 26 (21-32) mmol/L Anion Gap 9 (3-11) BUN 13 (6-23) mg/dl Creatinine 1.01 (0.6-1.4) mg/dl Est Cr Clr Drug Dosing 85.3 ml/min Est GFR ( Amer) 90.0 ml/min Est GFR (Non-Af Amer) 77.7 ml/min BUN/Creatinine Ratio 12.9 (10-20) Glucose 110 H (70-99(Fasting)) mg/dl POC Glucose (70-99) mg/dl Estimat Average Glucose Hemoglobin A1c Calcium 9.1 (8.5-10.1) mg/dl Magnesium 2.0 (1.7-2.4) mg/dl Total Bilirubin 1.0 (0.2-1.0) mg/dl AST 17 (13-39) U/L ALT 27 (7-52) U/L Alkaline Phosphatase 80 (34-104) U/L Total Protein 7.2 (6.0-8.3) gm/dl Albumin 4.1 (3.4-5.0) gm/dl Globulin 3.1 (2.5-4.0) gm/dl Albumin/Globulin Ratio 1.3 (0.9-2) Triglycerides (0-150) mg/dl Cholesterol (0-200) mg/dl LDL Cholesterol, Calc mg/dl VLDL Cholesterol, Calc (0-30) mg/dl HDL Cholesterol mg/dl Cholesterol/HDL Ratio (0-5) 04/15/ Range/Units 16:19 WBC (4.8-10.8) K/uL RBC (4.7-6.1) M/uL Hgb (14.0-18.0) g/dL Hct (42-52) % MCV (80-100) fL MCH (25-34) pg MCHC (32-36) g/dL RDW Std Deviation (36.4-46.3) fL RDW Coeff of Adelaida (11.5-14.5) % Plt Count (130-400) K/uL MPV (7.4-10.4) fL Immature Gran % (Auto) % Neut % (Auto) % Lymph % (Auto) % Weber % (Auto) % Eos % (Auto) % Baso % (Auto) % Neut # (Auto) (1.4-6.5) K/uL Lymph # (Auto) (1.2-3.4) K/uL Weber # (Auto) (0.11-0.59) K/uL Eos # (Auto) (0-0.5) K/uL Baso # (Auto) (0-0.2) K/uL Immature Gran # (Auto) (0.00-0.02) K/uL PT (9.0-12.0) Seconds INR (0.9-1.1) APTT (21.0-31.0) Seconds PTT Ratio Sodium (136-145) mmol/L Potassium (3.5-5.1) mmol/L Chloride (98-107) mmol/L Carbon Dioxide (21-32) mmol/L Anion Gap (3-11) BUN (6-23) mg/dl Creatinine (0.6-1.4) mg/dl Est Cr Clr Drug Dosing ml/min Est GFR ( Amer) ml/min Est GFR (Non-Af Amer) ml/min BUN/Creatinine Ratio (10-20) Glucose (70-99(Fasting)) mg/dl POC Glucose 94 (70-99) mg/dl Estimat Average Glucose Hemoglobin A1c Calcium (8.5-10.1) mg/dl Magnesium (1.7-2.4) mg/dl Total Bilirubin (0.2-1.0) mg/dl AST (13-39) U/L ALT (7-52) U/L Alkaline Phosphatase (34-104) U/L Total Protein (6.0-8.3) gm/dl Albumin (3.4-5.0) gm/dl Globulin (2.5-4.0) gm/dl Albumin/Globulin Ratio (0.9-2) Triglycerides (0-150) mg/dl Cholesterol (0-200) mg/dl LDL Cholesterol, Calc mg/dl VLDL Cholesterol, Calc (0-30) mg/dl HDL Cholesterol mg/dl Cholesterol/HDL Ratio (0-5) Medications Administered Current Inpatient Medications Acetaminophen (Acetaminophen 325 Mg Tab) 650 mg PO Q4H PRN PRN Reason: Pain or Fever Stop: 10/11/21 15:20 Al Hydrox/Mg Hydrox/Simethicone (Aluminum/Magnesium Susp 30 Ml Udc) 15 ml PO Q4H PRN PRN Reason: Dyspepsia Stop: 10/11/21 15:20 Allopurinol (Allopurinol 300 Mg Tab) 300 mg PO DAILY REPLACED BY [facility] Stop: 10/12/21 08:59 Aspirin (Aspirin 81 Mg Ectab) 81 mg PO DAILY REPLACED BY [facility] Stop: 10/12/21 08:59 Atorvastatin Calcium (Atorvastatin 40 Mg Tab) 40 mg PO DAILY REPLACED BY [facility] Stop: 10/12/21 08:59 Clopidogrel Bisulfate (Clopidogrel Bisulfate 75 Mg Tab) 75 mg PO QAM REPLACED BY [facility] Stop: 10/12/21 08:59 Lansoprazole (Lansoprazole 30 Mg Soltab) 30 mg PO DAILY REPLACED BY [facility] Stop: 10/12/21 08:59 Losartan Potassium (Losartan Potassium 50 Mg Tab) 50 mg PO DAILY REPLACED BY [facility] Stop: 10/12/21 08:59 Magnesium Hydroxide (Magnesium Hydroxide Susp 30 Ml Udc) 30 ml PO Q12H PRN PRN Reason: Constipation Stop: 10/11/21 15:20 Miscellaneous Information (Pharmacist Discharge Med Rec Consult) 1 ea N/A UD PRN PRN Reason: Consult Stop: 10/11/21 16:57
[2021-09-12] MEDS: CLOPIDOGREL BISULFATE 75 MG TAB PO SCH (08:48)
[2021-09-12] MEDS: allopurinoL 300 MG TAB PO SCH (08:48)
[2021-09-12] MEDS: ASPIRIN 81 MG ECTAB PO SCH (08:48)
[2021-09-12] MEDS: ATORVASTATIN 40 MG TAB PO SCH (08:48)
[2021-09-12] MEDS: LANSOPRAZOLE 30 MG SOLTAB PO SCH (08:49)
[2021-09-12] MEDS ORDERED: LOSARTAN POTASSIUM 50 MG TAB PO SCH (09:00)
[2021-09-12 09:33] LABS: Estimated Average Glucose 120 mg/dl; Hemoglobin A1C 5.8 % (4.5-5.6)
--- NOTE | 2021-09-12 12:13 | Communication Note ---
Date of Service: September 12, 2021 Ayo Perez is 66 years old is right-handed and had a borderline stress echocardiogram done suggestive of some ischemia and subsequently had a catheteri zation done yesterday. He tolerated the procedure well had no issues but then began to complain of diplopia oscillopsia and imbalance. A stroke alert was called CT scan was negative CT angiography has been negative and a subsequent MRI of the brain has shown no significant areas of infarction but he persists with complaints of diplopia on left lateral gaze and a sensation that his vision is oscillating a little when he looks to the left and also feels a little off balance. All of this occurs in the setting of some atypical chest pain from low-grade coronary disease, hypertension gastroesophageal reflux and with a history of an appendectomy His home medications include allopurinol, losartan, lansoprazole, baby aspirin, and atorvastatin He has no known drug allergies His general health has been good with the exception of some cardiovascular disease and in the past he has been on dual antiplatelet therapy and is now on an outpatient basis only taking single aspirin per day. Prior to catheterization he was loaded up with aspirin and after a stroke alert was called he was also loaded up with Plavix and is now on dual antiplatelet therapy with recommendations that this be continued for 21 days Family history and social history details are as per the dictated history and physical Review of systems reveals no recent systemic complaints the chest pain which prompted performance of a stress echo, the known coronary disease and hypertension, mild over nourishment but no prior neurologic events no migraine headaches no strokelike issues and no other new issues referable to head eyes ears nose and throat, cardiovascular pulmonary gastrointestinal genitourinary musculoskeletal systems Exam reveals blood pressure 175/105 pulse 71 respiration 19 he is afebrile O2 saturations are 96% on room air He is awake alert and oriented his speech is clear he describes his symptoms reasonably well specifically some oscillopsia on left lateral gaze and diplopia on right lateral gaze Facial motility and strength and facial sensation are normal eye movements are abnormal revealing what appears to be a right internuclear ophthalmic paresis tested by limited medial deviation of the right eye on left lateral gaze and a few beats of nystagmus of the left eye on left lateral gaze but otherwise no restrictions in upgaze downgaze right lateral gaze or convergence and without any pupillary abnormalities and without visual field cuts to confrontation. Gait is a little unsteady but there is no specific cerebellar dysfunction no spasticity. 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 Some degree the issue is academic as a treatment would not change at this point I am simply going to suggest that he be placed on dual antiplatelet therapy for 21 days and then on Plavix alone I will follow up with him tomorrow The current note was generated utilizing voice recognition technology and may have spelling errors punctuation errors pronoun usage errors and syntax errors Benjamin Martínez MD
--- NOTE | 2021-09-12 12:51 | Cardiology Progress Note ---
Date of Service September 12, 2021 Assessment & Plan (1) Double vision: (2) Chest pain: Plan: Patient is a 66-year-old male who developed diplopia and mild gait instability post cardiac catheterization. Neurologic evaluation in process with symptoms improving Cardiac status is stable. Would recommend PT OT evaluation Admission and Anticipated Discharge Date Admission Date: September 11, 2021 Subjective Patient was seen and examined, chart, medications, telemetry reviewed. Patient feels improved but still possibly unsteady on his feet minimal visual changes. No chest pains, shortness of breath, tachypalpitations. Neurologic evaluation initially CT CTA and MRI without abnormality Review of Systems Review of Systems: All systems reviewed & are unremarkable except as noted in Subjective Physical Exam Constitutional: WD/WN, vitals as above Eyes: PERRL, conjunctivae normal, anicteric sclerae ENMT: external ear and nose normal, oropharynx normal Neck: trachea midline, no thyromegaly Respiratory: normal respiratory effort, lungs clear to auscultation Cardiovascular: Rate/Rhythm: regular rate and regular rhythm Heart Sounds: normal S1 and normal S2; no gallop and no murmur Palpation: normal PMI Vessels: normal carotid upstroke and radial pulses present (Right radial access site healing well); no JVD and no carotid bruit Extremities: no edema Gastrointestinal (Abdomen): normal bowel sounds, soft, nontender, no hepatosplenomegaly Musculoskeletal: no cyanosis or clubbing, extremities motor strength 5/5 Skin: no rashes, warm and dry Psychiatric: A+Ox3, euthymic affect Results & Data ([facility]) Vital Signs (Past 12 Hours) Vital Signs Temp Pulse Pulse Resp BP BP Pulse Ox 09/12/21 12:00 64 15 132/92 96 09/12/21 11:00 69 13 09/12/21 10:08 71 19 175/105 H 09/12/21 10:05 66 20 155/98 H 09/12/21 10:03 67 17 132/90 09/12/21 10:00 68 18 09/12/21 09:00 65 13 09/12/21 08:50 65 16 156/89 H 09/12/21 08:00 64 15 09/12/21 03:00 36.9 C 57 L 18 145/75 H 96 09/12/21 02:00 59 L 15 09/12/21 01:00 49 L 14
[2021-09-13 05:23] LABS: Basophils # (auto) 0.01 K/uL (0-0.2); Basophils % (auto) 0.1 %; Eosinophils # (auto) 0.12 K/uL (0-0.5); Eosinophils % (auto) 1.4 %; Hematocrit (blood only) 42.7 % (42-52); Hemoglobin 14.6 g/dL (14.0-18.0); Immature Granulocytes # (auto) 0.01 K/uL (0.00-0.02); Immature Granulocytes % (auto) 0.1 %; Lymphocytes # (auto) 2.17 K/uL (1.2-3.4); Lymphocytes % (auto) 26.2 %; Mean Corpuscular Hemoglobin 30.3 pg (25-34); Mean Corpuscular Hgb Conc 34.2 g/dL (32-36); Mean Corpuscular Volume 88.6 fL (80-100); Monocytes # (auto) 0.46 K/uL (0.11-0.59); Monocytes % (auto) 5.5 %; Neutrophils # (auto) 5.52 K/uL (1.4-6.5); Neutrophils % (auto) 66.7 %; Platelet Count 191 K/uL (130-400); RDW Coefficient of Variation 12.9 % (11.5-14.5); RDW Standard Deviation 41.9 fL (36.4-46.3); Red Blood Count 4.82 M/uL (4.7-6.1); White Blood Count 8.29 K/uL (4.8-10.8)
[2021-09-13 05:41] LABS: BUN Creatinine Ratio 14.4 (10-20); Calcium 8.5 mg/dl (8.5-10.1); Creatinine Clr Calc Pharmacy 88.5 ml/min; Est GFR (African American) 94.6 ml/min; Est GFR (Non-African American) 81.6 ml/min; Potassium 3.7 mmol/L (3.5-5.1)
--- NOTE | 2021-09-13 09:12 | Hospitalist Progress Note ---
Date of Service September 13, 2021 Assessment & Plan (1) Double vision: Plan: Stroke like Symptoms: R/O Acute CVA DD: secondary to anesthesia given for cardiac cath Stroke work up including lipid panel, A1C, MRI Brain, CTA Head/Neck, ECHO orde red Admit in Tele CT head: showed no acute pathology CTA head and neck - Mild atherosclerosis without high-grade stenosis, aneurysm, dissection or arterial occlusion. MRI brain - No acute intracranial abnormality. No acute or subacute infarct. 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 Some degree the issue is academic as a treatment would not change at this point I am simply going to suggest that he be placed on dual antiplatelet therapy for 21 days and then on Plavix alone Will cont. to follow. Repeat MRI brain ordered and pending CAD Continue aspirin, statin, Lipitor HTN Hold losartan given strokelike symptoms Monitor blood pressure Gout On allopurinol GERD on PPI S/P Cardiac Cath Continue home meds DVT Px: SCDs for now Code Status Full Code Admission and Anticipated Discharge Date Admission Date: September 11, 2021 Subjective Patient seen in follow-up of diplopia after cardiac cath Currently patient is sitting up in bed, in no acute distress Reports diplopia improved however he still has some dizziness when he looks to the left, and also reports some imbalance CT head, CTA head and neck, MRI brain so far negative Repeat brain MRI pending Patient denies any chest pain, shortness of breath, fevers, chills, headache, abdominal pain, nausea vomiting Review of Systems Review of Systems: All systems reviewed & are unremarkable except as noted in Subjective Physical Exam Physical Exam: General Appearance: Obese M, in no apparent distress Head: normocephalic, Atraumatic Eyes: normal inspection, EOMI, + Double vision seems improved if pt is looking straight Neck: supple, Trachea midline Respiratory/Chest: Normal breath sounds, CTA, No accessory muscle use Cardiovascular: S1, S2, No murmur Abdomen/GI:Soft, Non tender, Bowel sounds present Extremities/Musculoskeletal:normal inspection, no edema Neurologic/Psych:AAOX3, no facial asymmetry, speech fluent, moves extremities. Gait not assessed, pt reports imbalance. Skin: normal color, warm Results & Data Results & Data ([facility]) Vital Signs (Past 12 Hours) Vital Signs Temp Pulse Pulse Resp BP Pulse Ox 09/13/21 05:00 66 16 133/86 96 09/12/21 23:59 36.4 C L 63 16 140/91 96 09/12/21 23:03 63 09/12/21 21:35 57 L 09/12/21 21:30 36.7 C 56 L 14 150/98 H 96 Laboratory Results 09/13/21 09/13/21 09/12/21 Range/Units 04:52 04:52 04:50 WBC 8.29 (4.8-10.8) K/uL RBC 4.82 (4.7-6.1) M/uL Hgb 14.6 (14.0-18.0) g/dL Hct 42.7 (42-52) % MCV 88.6 (80-100) fL MCH 30.3 (25-34) pg MCHC 34.2 (32-36) g/dL RDW Std Deviation 41.9 (36.4-46.3) fL RDW Coeff of Adelaida 12.9 (11.5-14.5) % Plt Count 191 (130-400) K/uL MPV 11.0 H (7.4-10.4) fL Immature Gran % (Auto) 0.1 % Neut % (Auto) 66.7 % Lymph % (Auto) 26.2 % Marshall % (Auto) 5.5 % Eos % (Auto) 1.4 % Baso % (Auto) 0.1 % Neut # (Auto) 5.52 (1.4-6.5) K/uL Lymph # (Auto) 2.17 (1.2-3.4) K/uL Marshall # (Auto) 0.46 (0.11-0.59) K/uL Eos # (Auto) 0.12 (0-0.5) K/uL Baso # (Auto) 0.01 (0-0.2) K/uL Immature Gran # (Auto) 0.01 (0.00-0.02) K/uL Sodium 138 (136-145) mmol/L Potassium 3.7 (3.5-5.1) mmol/L Chloride 107 (98-107) mmol/L Carbon Dioxide 25 (21-32) mmol/L Anion Gap 6 (3-11) BUN 14 (6-23) mg/dl Creatinine 0.97 (0.6-1.4) mg/dl Est Cr Clr Drug Dosing 88.5 ml/min Est GFR ( Amer) 94.6 ml/min Est GFR (Non-Af Amer) 81.6 ml/min BUN/Creatinine Ratio 14.4 (10-20) Glucose 150 H (70-99(Fasting)) mg/dl Estimat Average Glucose 120 mg/dl Hemoglobin A1c 5.8 H (4.5-5.6) % Calcium 8.5 (8.5-10.1) mg/dl Medications Administered Current Inpatient Medications Acetaminophen (Acetaminophen 325 Mg Tab) 650 mg PO Q4H PRN PRN Reason: Pain or Fever Stop: 10/11/21 15:20 Last Admin: 09/13/21 02:01 Dose: 650 mg Documented by: Al Hydrox/Mg Hydrox/Simethicone (Aluminum/Magnesium Susp 30 Ml Udc) 15 ml PO Q4H PRN PRN Reason: Dyspepsia Stop: 10/11/21 15:20 Allopurinol (Allopurinol 300 Mg Tab) 300 mg PO DAILY [facility] Stop: 10/12/21 08:59 Last Admin: 09/12/21 08:48 Dose: 300 mg Documented by: Aspirin (Aspirin 81 Mg Ectab) 81 mg PO DAILY [facility] Stop: 10/12/21 08:59 Last Admin: 09/12/21 08:48 Dose: 81 mg Documented by: Atorvastatin Calcium (Atorvastatin 40 Mg Tab) 40 mg PO DAILY [facility] Stop: 10/12/21 08:59 Last Admin: 09/12/21 08:48 Dose: 40 mg Documented by: Clopidogrel Bisulfate (Clopidogrel Bisulfate 75 Mg Tab) [facility] [place] Stop: 10/12/21 08:59 Last Admin: 09/12/21 08:48 Dose: 75 mg Documented by: Lansoprazole (Lansoprazole 30 Mg Soltab) 30 mg PO DAILY [facility] Stop: 10/12/21 08:59 Last Admin: 09/12/21 08:49 Dose: 30 mg Documented by: Losartan Potassium (Losartan Potassium 50 Mg Tab) 50 mg PO DAILY [facility] Stop: 10/12/21 08:59 Magnesium Hydroxide (Magnesium Hydroxide Susp 30 Ml Udc) 30 ml PO Q12H PRN PRN Reason: Constipation Stop: 10/11/21 15:20 Miscellaneous Information (Pharmacist Discharge Med Rec Consult) 1 ea N/A UD PRN PRN Reason: Consult Stop: 10/11/21 16:57
[2021-09-13] MEDS: CLOPIDOGREL BISULFATE 75 MG TAB PO SCH (09:43)
[2021-09-13] MEDS: LANSOPRAZOLE 30 MG SOLTAB PO SCH (09:43)
[2021-09-13] MEDS: ASPIRIN 81 MG ECTAB PO SCH (09:44)
[2021-09-13] MEDS: ATORVASTATIN 40 MG TAB PO SCH (09:44)
[2021-09-13] MEDS: allopurinoL 300 MG TAB PO SCH (09:44)
--- NOTE | 2021-09-13 10:27 | Cardiology Progress Note ---
Date of Service September 13, 2021 Assessment & Plan (1) Double vision: (2) Chest pain: Plan: Coronary angiography without progression of disease Plan: Patient is a 66-year-old male who developed diplopia and mild gait instability post cardiac catheterization. Neurologic evaluation in process with symptoms improving Cardiac status is stable. No arrhythmias. Patient on dual antiplatelet therapy with planned MRI for later today. May ultimately be discharged with home PT OT Admission and Anticipated Discharge Date Admission Date: September 11, 2021 Subjective Patient seen and examined, chart, medications, telemetry reviewed. Notes vision "still kind of funny" balance and ambulation improved. No headache or nausea. No arrhythmias on telemetry Review of Systems Review of Systems: All systems reviewed & are unremarkable except as noted in Subjective Physical Exam Constitutional: WD/WN, vitals as above Eyes: PERRL, conjunctivae normal, anicteric sclerae ENMT: external ear and nose normal, oropharynx normal Neck: trachea midline, no thyromegaly Respiratory: normal respiratory effort, lungs clear to auscultation Cardiovascular: Rate/Rhythm: regular rate and regular rhythm Heart Sounds: normal S1 and normal S2; no gallop and no murmur Palpation: normal PMI Vessels: normal carotid upstroke and radial pulses present (Right radial access site healing well); no JVD and no carotid bruit Extremities: no edema Gastrointestinal (Abdomen): normal bowel sounds, soft, nontender, no hepatosplenomegaly Musculoskeletal: no cyanosis or clubbing, extremities motor strength 5/5 Skin: no rashes, warm and dry Psychiatric: A+Ox3, euthymic affect Results & Data ([facility]) Vital Signs (Past 12 Hours) Vital Signs Temp Pulse Pulse Resp BP Pulse Ox 09/13/21 05:00 66 16 133/86 96 09/12/21 23:59 36.4 C L 63 16 140/91 96 09/12/21 23:03 63 Laboratory Results Laboratory Results - last 24 hr 09/13/21 09/13/21 04:52 04:52 WBC 8.29 RBC 4.82 Hgb 14.6 Hct 42.7 MCV 88.6 MCH 30.3 MCHC 34.2 RDW Std Deviation 41.9 RDW Coeff of Adelaida 12.9 Plt Count 191 MPV 11.0 H Immature Gran % (Auto) 0.1 Neut % (Auto) 66.7 Lymph % (Auto) 26.2 Walker % (Auto) 5.5 Eos % (Auto) 1.4 Baso % (Auto) 0.1 Neut # (Auto) 5.52 Lymph # (Auto) 2.17 Walker # (Auto) 0.46 Eos # (Auto) 0.12 Baso # (Auto) 0.01 Immature Gran # (Auto) 0.01 Sodium 138 Potassium 3.7 Chloride 107 Carbon Dioxide 25 Anion Gap 6 BUN 14 Creatinine 0.97 Est Cr Clr Drug Dosing 88.5 Est GFR ( Amer) 94.6 Est GFR (Non-Af Amer) 81.6 BUN/Creatinine Ratio 14.4 Glucose 150 H Calcium 8.5 Medications Administered Current Medications Acetaminophen (Acetaminophen 325 Mg Tab) 650 mg PO Q4H PRN PRN Reason: Pain or Fever Stop: 10/11/21 15:20 Last Admin: 09/13/21 02:01 Dose: 650 mg Documented by: Al Hydrox/Mg Hydrox/Simethicone (Aluminum/Magnesium Susp 30 Ml Udc) 15 ml PO Q4H PRN PRN Reason: Dyspepsia Stop: 10/11/21 15:20 Allopurinol (Allopurinol 300 Mg Tab) 300 mg PO DAILY [facility] Stop: 10/12/21 08:59 Last Admin: 09/13/21 09:44 Dose: 300 mg Documented by: Aspirin (Aspirin 81 Mg Ectab) 81 mg PO DAILY [facility] Stop: 10/12/21 08:59 Last Admin: 09/13/21 09:44 Dose: 81 mg Documented by: Atorvastatin Calcium (Atorvastatin 40 Mg Tab) 40 mg PO DAILY [facility] Stop: 10/12/21 08:59 Last Admin: 09/13/21 09:44 Dose: 40 mg Documented by: Clopidogrel Bisulfate (Clopidogrel Bisulfate 75 Mg Tab) 75 mg PO QAM [facility] Stop: 10/12/21 08:59 Last Admin: 09/13/21 09:43 Dose: 75 mg Documented by: Lansoprazole (Lansoprazole 30 Mg Soltab) 30 mg PO DAILY [facility] Stop: 10/12/21 08:59 Last Admin: 09/13/21 09:43 Dose: 30 mg Documented by: Losartan Potassium (Losartan Potassium 50 Mg Tab) 50 mg PO DAILY [facility] Stop: 10/12/21 08:59 Magnesium Hydroxide (Magnesium Hydroxide Susp 30 Ml Udc) 30 ml PO Q12H PRN PRN Reason: Constipation Stop: 10/11/21 15:20 Miscellaneous Information (Pharmacist Discharge Med Rec Consult) 1 ea N/A UD PRN PRN Reason: Consult Stop: 10/11/21 16:57
--- NOTE | 2021-09-13 11:27 | Communication Note ---
Date of Service: September 13, 2021 Ayo is slightly improved today. He is walking in the [place] with minimal assistance feels a little dystaxic but I really do not see any lateralizing feat ures and there is no spasticity. 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 There is minimal if any nystagmus on left gaze with the left eye and the right medial gaze is less restricted but he still has significant diplopia on gaze to the left none to the right and all other eye movements and pupillary function are normal as are the rest of his cranial nerves speech etc. He is on deck for another MRI today to see if we can localize this presumptive infarction which anatomically should be in a dorsal midbrain on the right between the 3rd and 6th nerve nuclei but is so small that we certainly may be beyond the resolution power of even MRI to demonstrate He should continue his dual antiplatelet therapy for 21 days switch back to pure Plavix and we will arrange for follow-up in our office in about 4 weeks. The cause of this is uncertain. It probably was due to a small clot or piece of atheromatous plaque flowingup the right vertebral artery and lodging in one of the paramedian or median perforating branches of the basilar artery supplying the dorsal midbrain area. 1 can never totally exclude an incidental and serendipitous isolated small vessel event unrelated to the catheterization procedure as he is at risk for this as well Again the issue is academic and treatment would remain the same I have encouraged him to try occluding one of his eyes when engaged in reading tasks and I think he should follow-up with an rubber molder. While the prognosis for recovery is good he may end up needing some form of prism correction long-term I will check back on the MRI this afternoon from my home computer For now neurology is going to sign off the case as I suspect he could be discharged today after the MRI and we will arrange follow-up as noted above Benjamin Martínez MD The above note was generated utilizing voice recognition technology and may have spelling errors punctuation errors pronoun usage errors and syntax errors
--- NOTE | 2021-09-13 15:30 | Magnetic Resonance Report ---
MR brain wo con HISTORY: 66 years-old Male strokelike symptoms acute strokelike symptoms with double vision COMPARISON: CTA head and neck and brain MRI 09/11/2021 TECHNIQUE: Multiplanar multisequence brain was obtained without the use of contrast FINDINGS: No restricted diffusion to suggest acute or subacute infarct. Degenerative changes of the imaged cerv ical spine. The midline structures are otherwise unremarkable. No acute intracranial hemorrhage, midl ine shift, abnormal extra-axial collection, hydrocephalus or intracranial mass. No pathologic bloomin g artifact. There are a few punctate T2/FLAIR hyperintense foci noted throughout the white matter, no nspecific however suggestive of mild chronic microvascular ischemic disease. The study is mildly varun on degraded. The cerebral venous sinuses and major arterial flow voids appear patent. Mastoid air barbie ls are clear. [id number] mucosal thickening of the paranasal sinuses. The skull, orbits and sof t tissues are unremarkable. IMPRESSION: Stable exam from the 09/11/2021 study. There is no acute intracranial abnormality, specifi dante no acute or subacute infarct. ACT 112: Negative or not required by law. The above report was generated using voice recognition software. It may contain grammatical, syntax o r spelling errors. Electronically signed by: Jhonny Masters M.D. 09/13/2021 3:27 PM
[2021-09-14 05:14] LABS: Basophils # (auto) 0.02 K/uL (0-0.2); Basophils % (auto) 0.3 %; Eosinophils # (auto) 0.16 K/uL (0-0.5); Eosinophils % (auto) 2.1 %; Hematocrit (blood only) 42.7 % (42-52); Hemoglobin 14.6 g/dL (14.0-18.0); Immature Granulocytes # (auto) 0.02 K/uL (0.00-0.02); Immature Granulocytes % (auto) 0.3 %; Lymphocytes # (auto) 2.26 K/uL (1.2-3.4); Lymphocytes % (auto) 29.7 %; Mean Corpuscular Hemoglobin 30.2 pg (25-34); Mean Corpuscular Hgb Conc 34.2 g/dL (32-36); Mean Corpuscular Volume 88.2 fL (80-100); Mean Platelet Volume 10.7 fL (7.4-10.4); Monocytes # (auto) 0.64 K/uL (0.11-0.59); Monocytes % (auto) 8.4 %; Neutrophils # (auto) 4.51 K/uL (1.4-6.5); Neutrophils % (auto) 59.2 %; Platelet Count 190 K/uL (130-400); RDW Coefficient of Variation 12.8 % (11.5-14.5); RDW Standard Deviation 40.9 fL (36.4-46.3); Red Blood Count 4.84 M/uL (4.7-6.1); White Blood Count 7.61 K/uL (4.8-10.8)
[2021-09-14 05:33] LABS: BUN Creatinine Ratio 17.2 (10-20); Calcium 8.5 mg/dl (8.5-10.1); Creatinine Clr Calc Pharmacy 92.3 ml/min; Est GFR (African American) 99.5 ml/min; Est GFR (Non-African American) 85.8 ml/min; Potassium 3.6 mmol/L (3.5-5.1)
[2021-09-14] MEDS ORDERED: POTASSIUM CHLORIDE CRTAB 20 MEQ TABCR PO STA (07:46)
--- NOTE | 2021-09-14 07:46 | Hospitalist Progress Note ---
Date of Service September 14, 2021 Assessment & Plan (1) Double vision: Plan: Stroke like Symptoms: R/O Acute CVA DD: secondary to anesthesia given for cardiac cath Stroke work up including lipid panel, A1C, MRI Brain, CTA Head/Neck, ECHO orde red Admit in Tele CT head: showed no acute pathology CTA head and neck - Mild atherosclerosis without high-grade stenosis, aneurysm, dissection or arterial occlusion. MRI brain - No acute intracranial abnormality. No acute or subacute infarct. 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 Some degree the issue is academic as a treatment would not change at this point I am simply going to suggest that he be placed on dual antiplatelet therapy for 21 days and then on Plavix alone Will cont. to follow. 09/13 Repeat MRI brain obtained - no acute events CAD Continue aspirin, statin, Lipitor HTN Hold losartan given strokelike symptoms Monitor blood pressure May resume after DC Gout On allopurinol GERD on PPI S/P Cardiac Cath Continue home meds DVT Px: SCDs for now Code Status Full Code Admission and Anticipated Discharge Date Admission Date: September 13, 2021 Subjective Patient seen in follow-up of diplopia after cardiac cath Currently patient is sitting up in bed, in no acute distress Reports diplopia improved however he still has some dizziness when he looks to the left, and also reports some imbalance CT head, CTA head and neck, MRI brain negative Repeat brain MRI unchanged - no acute events noted Patient denies any chest pain, shortness of breath, fevers, chills, headache, abdominal pain, nausea vomiting Review of Systems Review of Systems: All systems reviewed & are unremarkable except as noted in Subjective Physical Exam Physical Exam: General Appearance: Obese M, in no apparent distress Head: normocephalic, Atraumatic Eyes: normal inspection, EOMI, + Double vision seems improved if pt is looking straight Neck: supple, Trachea midline Respiratory/Chest: Normal breath sounds, CTA, No accessory muscle use Cardiovascular: S1, S2, No murmur Abdomen/GI:Soft, Non tender, Bowel sounds present Extremities/Musculoskeletal:normal inspection, no edema Neurologic/Psych:AAOX3, no facial asymmetry, speech fluent, moves extremities. Gait not assessed, pt reports imbalance. Skin: normal color, warm Results & Data Results & Data ([facility]) Vital Signs (Past 12 Hours) Vital Signs Temp Pulse Pulse Resp BP Pulse Ox 09/14/21 07:23 36.8 C 54 L 13 144/97 H 97 09/14/21 04:00 36.7 C 59 L 16 139/99 95 09/14/21 00:00 59 L Laboratory Results 09/14/21 09/14/21 Range/Units 04:51 04:51 WBC 7.61 (4.8-10.8) K/uL RBC 4.84 (4.7-6.1) M/uL Hgb 14.6 (14.0-18.0) g/dL Hct 42.7 (42-52) % MCV 88.2 (80-100) fL MCH 30.2 (25-34) pg MCHC 34.2 (32-36) g/dL RDW Std Deviation 40.9 (36.4-46.3) fL RDW Coeff of Adelaida 12.8 (11.5-14.5) % Plt Count 190 (130-400) K/uL MPV 10.7 H (7.4-10.4) fL Immature Gran % (Auto) 0.3 % Neut % (Auto) 59.2 % Lymph % (Auto) 29.7 % Hendricks % (Auto) 8.4 % Eos % (Auto) 2.1 % Baso % (Auto) 0.3 % Neut # (Auto) 4.51 (1.4-6.5) K/uL Lymph # (Auto) 2.26 (1.2-3.4) K/uL Hendricks # (Auto) 0.64 H (0.11-0.59) K/uL Eos # (Auto) 0.16 (0-0.5) K/uL Baso # (Auto) 0.02 (0-0.2) K/uL Immature Gran # (Auto) 0.02 (0.00-0.02) K/uL Sodium 138 (136-145) mmol/L Potassium 3.6 (3.5-5.1) mmol/L Chloride 107 (98-107) mmol/L Carbon Dioxide 24 (21-32) mmol/L Anion Gap 7 (3-11) BUN 16 (6-23) mg/dl Creatinine 0.93 (0.6-1.4) mg/dl Est Cr Clr Drug Dosing 92.3 ml/min Est GFR ( Amer) 99.5 ml/min Est GFR (Non-Af Amer) 85.8 ml/min BUN/Creatinine Ratio 17.2 (10-20) Glucose 107 H (70-99(Fasting)) mg/dl Calcium 8.5 (8.5-10.1) mg/dl Medications Administered Current Inpatient Medications Acetaminophen (Acetaminophen 325 Mg Tab) 650 mg PO Q4H PRN PRN Reason: Pain or Fever Stop: 10/11/21 15:20 Last Admin: 09/13/21 02:01 Dose: 650 mg Documented by: Al Hydrox/Mg Hydrox/Simethicone (Aluminum/Magnesium Susp 30 Ml Udc) 15 ml PO Q4H PRN PRN Reason: Dyspepsia Stop: 10/11/21 15:20 Allopurinol (Allopurinol 300 Mg Tab) 300 mg PO DAILY [facility] Stop: 10/12/21 08:59 Last Admin: 09/13/21 09:44 Dose: 300 mg Documented by: Aspirin (Aspirin 81 Mg Ectab) 81 mg PO DAILY [facility] Stop: 10/12/21 08:59 Last Admin: 09/13/21 09:44 Dose: 81 mg Documented by: Atorvastatin Calcium (Atorvastatin 40 Mg Tab) 40 mg PO DAILY [facility] Stop: 10/12/21 08:59 Last Admin: 09/13/21 09:44 Dose: 40 mg Documented by: Clopidogrel Bisulfate (Clopidogrel Bisulfate 75 Mg Tab) [facility] [place]: 10/12/21 08:59 Last Admin: 09/13/21 09:43 Dose: 75 mg Documented by: Lansoprazole (Lansoprazole 30 Mg Soltab) 30 mg PO DAILY [facility] Stop: 10/12/21 08:59 Last Admin: 09/13/21 09:43 Dose: 30 mg Documented by: Losartan Potassium (Losartan Potassium 50 Mg Tab) 50 mg PO DAILY [facility] Stop: 10/12/21 08:59 Magnesium Hydroxide (Magnesium Hydroxide Susp 30 Ml Udc) 30 ml PO Q12H PRN PRN Reason: Constipation Stop: 10/11/21 15:20 Miscellaneous Information (Pharmacist Discharge Med Rec Consult) 1 ea N/A UD PRN PRN Reason: Consult Stop: 10/11/21 16:57
--- NOTE | 2021-09-14 09:05 | Cardiology Progress Note ---
Date of Service September 14, 2021 Assessment & Plan (1) Double vision: (2) Chest pain: Plan: The patient has had multiple scans all of which have been negative.He most likely had a very very tiny event which may have been related to the heart cath but since it was several hours after the procedure was completed it may have been an incidental And unrelated as indicated by neurology. Most importantly, the patient symptoms have almost completely resolved and hopefully he will have a full recovery. From a cardiology standpoint he can be discharged per the hospitalist service. I will arrange follow-up with our clinic. Admission and Anticipated Discharge Date Admission Date: September 13, 2021 Subjective The patient is ambulating and will work on the stairs with physical therapy today. He states that he is almost 100% back to normal. Review of Systems Review of Systems: Review of Systems: See HPI for pertinent positives. All other 10 point review of systems are negative. Physical Exam Physical Exam: General: no acute distress and stated age Head: normocephalic, no masses, lesions, tenderness or abnormalities Eyes: conjunctiva are pink and non-injected, sclera clear Neck: supple, no adenopathy, no bruits, normal jugular venous pulse, no hepatojugular reflux Chest: normal shape and normal respiratory effort Lungs: clear to auscultation and percussion Cardiac Exam: - regular rate & rhythm, no murmurs gallops or rubs - normal S1, normal S2 Pulses: 2(+) throughout Abdomen: abdomen soft, non-tender, no abnormal masses and no hepatosplenomegaly Musculoskeletal: no gait disturbance, no joint inflammation, no deforming arthritis Extremities: no edema and no cyanosis Neuro: grossly normal exam Results & Data ([facility]) Vital Signs (Past 12 Hours) Vital Signs Temp Pulse Pulse Resp BP Pulse Ox 09/14/21 07:23 36.8 C 54 L 13 144/97 H 97 09/14/21 04:00 36.7 C 59 L 16 139/99 95 09/14/21 00:00 59 L Laboratory Results Laboratory Results - last 24 hr 09/14/21 09/14/21 04:51 04:51 WBC 7.61 RBC 4.84 Hgb 14.6 Hct 42.7 MCV 88.2 MCH 30.2 MCHC 34.2 RDW Std Deviation 40.9 RDW Coeff of Adelaida 12.8 Plt Count 190 MPV 10.7 H Immature Gran % (Auto) 0.3 Neut % (Auto) 59.2 Lymph % (Auto) 29.7 Hamlin % (Auto) 8.4 Eos % (Auto) 2.1 Baso % (Auto) 0.3 Neut # (Auto) 4.51 Lymph # (Auto) 2.26 Hamlin # (Auto) 0.64 H Eos # (Auto) 0.16 Baso # (Auto) 0.02 Immature Gran # (Auto) 0.02 Sodium 138 Potassium 3.6 Chloride 107 Carbon Dioxide 24 Anion Gap 7 BUN 16 Creatinine 0.93 Est Cr Clr Drug Dosing 92.3 Est GFR ( Amer) 99.5 Est GFR (Non-Af Amer) 85.8 BUN/Creatinine Ratio 17.2 Glucose 107 H Calcium 8.5 Diagnostic Findings 2 MRIs, CT of the brain and CT angio of the brain all negative Medications Administered Current Inpatient Medications Acetaminophen (Acetaminophen 325 Mg Tab) 650 mg PO Q4H PRN PRN Reason: Pain or Fever Stop: 10/11/21 15:20 Last Admin: 09/13/21 02:01 Dose: 650 mg Documented by: Al Hydrox/Mg Hydrox/Simethicone (Aluminum/Magnesium Susp 30 Ml Udc) 15 ml PO Q4H PRN PRN Reason: Dyspepsia Stop: 10/11/21 15:20 Allopurinol (Allopurinol 300 Mg Tab) 300 mg PO DAILY [facility] Stop: 10/12/21 08:59 Last Admin: 09/13/21 09:44 Dose: 300 mg Documented by: Aspirin (Aspirin 81 Mg Ectab) 81 mg PO DAILY [facility] Stop: 10/12/21 08:59 Last Admin: 09/13/21 09:44 Dose: 81 mg Documented by: Atorvastatin Calcium (Atorvastatin 40 Mg Tab) 40 mg PO DAILY [facility] Stop: 10/12/21 08:59 Last Admin: 09/13/21 09:44 Dose: 40 mg Documented by: Clopidogrel Bisulfate (Clopidogrel Bisulfate 75 Mg Tab) [facility] [place] Stop: 10/12/21 08:59 Last Admin: 09/13/21 09:43 Dose: 75 mg Documented by: Lansoprazole (Lansoprazole 30 Mg Soltab) 30 mg PO DAILY [facility] Stop: 10/12/21 08:59 Last Admin: 09/13/21 09:43 Dose: 30 mg Documented by: Losartan Potassium (Losartan Potassium 50 Mg Tab) 50 mg PO DAILY [facility] Stop: 10/12/21 08:59 Magnesium Hydroxide (Magnesium Hydroxide Susp 30 Ml Udc) 30 ml PO Q12H PRN PRN Reason: Constipation Stop: 10/11/21 15:20 Miscellaneous Information (Pharmacist Discharge Med Rec Consult) 1 ea N/A UD PRN PRN Reason: Consult Stop: 10/11/21 16:57
[2021-09-14] MEDS: ATORVASTATIN 40 MG TAB PO SCH (09:41)
[2021-09-14] MEDS: ASPIRIN 81 MG ECTAB PO SCH (09:41)
[2021-09-14] MEDS: allopurinoL 300 MG TAB PO SCH (09:41)
[2021-09-14] MEDS: CLOPIDOGREL BISULFATE 75 MG TAB PO SCH (09:41)
[2021-09-14] MEDS ORDERED: STROKE PATIENT DISCHARGE STA (10:31)
--- NOTE | 2021-09-14 10:36 | Discharge Summary ---
Date of Service September 14, 2021 Admission HPI Per Admitting Provider Patient is a 66-year-old male with history of coronary artery disease, hypertension, hyperlipidemia, GERD, gout and other medical problems presents with history of sudden onset of double vision after having elective cardiac catheterization today. Patient had an equivocal exercise stress test and was referred for an elective cardiac catheterization. Post catheterization, patient was initially thought to be discharged but developed sudden onset of double vision at around 2:30 PM today. Patient took 4 baby aspirin's this morning prior to cardiac catheterization as recommended by cardiology. He states having dizziness with change in position during my encounter. Double vision gradually improved over time. Stroke alert was initiated and on recommendations from [facility], patient was loaded with Plavix. He was thought to be not a candidate for thrombolytics as per neurology (cardiac cath through femoral artery approach). Denies any history of chest pain, SOB, palpitations, headache, weakness, numbness, slurred speech, facial deformity, bowel/bladder incontinence, nausea, vomiting, abdominal pain. CT head showed no acute findings. CTA head and neck currently pending. Admission Exam Per Admitting Provider General Appearance:Morbidly Obese, no apparent distress Head: normocephalic, Atraumatic Eyes: normal inspection, EOMI, + Double vision Neck: supple, Trachea midline Respiratory/Chest: Normal breath sounds, CTA, No accessory muscle use Cardiovascular: S1, S2, No murmur Abdomen/GI:Soft, Non tender, Bowel sounds present Extremities/Musculoskeletal:normal inspection, no edema Neurologic/Psych:AAOX3, grossly no focal neurological deficits Skin: normal color, warm Principal Diagnosis CVA Coronary artery disease Discharge Exam General Appearance: Obese M, in no apparent distress Head: normocephalic, Atraumatic Eyes: normal inspection, EOMI, + Double vision seems improved if pt is looking straight, + mild nystagmus when looking to the L Neck: supple, Trachea midline Respiratory/Chest: Normal breath sounds, CTA, No accessory muscle use Cardiovascular: S1, S2, No murmur Abdomen/GI:Soft, Non tender, Bowel sounds present Extremities/Musculoskeletal:normal inspection, no edema Neurologic/Psych:AAOX3, no facial asymmetry, speech fluent, moves extremities. Gait not assessed, pt reports imbalance. Skin: normal color, warm Discharge Data Allergies Allergy/AdvReac Type Severity Reaction Status Date / Time No Known Allergies Allergy Mild Verified 02/27/07 18:27 Consultations 09/11/21 15:38 Consult Neurology Stat 09/11/21 16:59 Consult Neurology Routine Procedures Performed Operation Date: 09/11/21 10:30 Actual Procedures p Cath, Coronaries ONLY (no LV) - Matias Sumner DO s Cineradiography w/Routine Exam - DO nathan Rubio Placement Art Occlusive Device - Matias Sumner DO Ordered Studies 09/11/21 06:53 CL Cath Imgs for PACS use only Routine 09/11/21 15:46 CT head/brain wo con Stat Impression: No acute intracranial hemorrhage, no evidence of acute territorial infarction or other acute intracranial disease process. 09/11/21 17:03 MR brain wo con Routine IMPRESSION: No acute intracranial abnormality. No acute or subacute infarct. 09/11/21 18:30 CT angio head w con Stat IMPRESSION:Mild atherosclerosis without high-grade stenosis, aneurysm, dissection or arterial occlusion. 09/11/21 18:31 CT angio neck with con Stat IMPRESSION:Mild atherosclerosis without high-grade stenosis, aneurysm, dissection or arterial occlusion. 09/13/21 08:51 MR brain wo con Urgent IMPRESSION: Stable exam from the 09/11/2021 study. There is no acute intracranial abnormality, specifically no acute or subacute infarct. Hospital Course (1) Double vision: Stroke like Symptoms: R/O Acute CVA DD: secondary to anesthesia given for cardiac cath Stroke work up including lipid panel, A1C, MRI Brain, CTA Head/Neck, ECHO ordered Admit in Tele CT head: showed no acute pathology CTA head and neck - Mild atherosclerosis without high-grade stenosis, aneurysm, dissection or arterial occlusion. MRI brain - No acute intracranial abnormality. No acute or subacute infarct. 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 Some degree the issue is academic as a treatment would not change at this point I am simply going to suggest that he be placed on dual antiplatelet therapy for 21 days and then on Plavix alone Will cont. to follow. 09/13 Repeat MRI brain obtained - no acute events CAD Continue aspirin, statin, Lipitor HTN Hold losartan given strokelike symptoms Monitor blood pressure May resume after DC Gout On allopurinol GERD on PPI S/P Cardiac Cath Continue home meds Total Time Total Time Spent Total Time Spent (In Minutes): 40 Discharge Plan Discharge Items Patient Disposition: Home - Home Health Services Reason For Visit: STROKE Discharge Diagnosis: CVA Coronary artery disease Activity: Per Instructions section Non-emergency contact: Primary Care Provider, Medical Insurance Coding Specialist and Neurologist Call non-emergency contact if: you have any medication questions, your symptoms worsen, your pain is not controlled, your pain is worsening, your pain is unusual for you, your pain is concerning for you, you have a fever, your temperature is above 101, your wound has increased redness, your wound has increased drainage and your wound pain has increased Follow-up/Referrals: Karuna Price MD [Primary Care Provider] - (Date & Time 09/22/2021 2:20 PM Provider Karuna Price MD Department [facility] ) Diet: Heart Healthy Addtl Attending Provider Instructions: Follow-up with your primary care doctor, and neurologist. The appointment with your primary care doctor was scheduled for you for September 22. Take aspirin and Plavix for 20 more days, then take Plavix alone. ACTIVITY RECOMMENDATIONS: It is common to feel weak and fatigue for a few days. * Do not drive or operate any motorized equipment for the next three days. * Limit stair usage (2 or 3 trips a day only) for the next three days. * Do not lift anything heavier than 10 pounds for the next three days. * Do not engage in vigorous exercise or any sports for the next five days. * You may shower the day after your procedure, but do not immerse the area for three days. Cleanse the site gently with soap and water. SPECIAL CARE INSTRUCTIONS: * You may replace the pressure dressing or band-aid the morning after the procedure. * After your procedure, it is normal to have a small bruise or small lump at the site. Examine your site daily for any change in the bruise or lump, redness, swelling, drainage or numbness. Notify your doctor if any change. BLEEDING: * If there is a small amount of bleeding at the site, lie down and apply firm pressure with a clean cloth for ten minutes. When the bleeding stops, lie quietly keeping the procedure limb straight for six hours. Notify your doctor as soon as possible. * If the bleeding does not stop after ten minutes or if there is a large amount of bleeding or spurting, call 911 immediately. Continue to lie down and hold firm pressure until help arrives. SKIN IRRITATION: * You may experience some redness and/or swelling in the area where radiation was administered. If any skin irritation occurs, please contact your family physician. FOLLOW UP VISIT: Keep any scheduled doctor appointments. Pending Studies at Discharge: No Stand-Alone Forms: Medications to Prevent Stroke, [facility], Smoking Cessation Medications and DC Order Prescriptions: New clopidogrel 75 mg Tablet 75 mg PO QAM Qty: 30 RF: 0 Continued losartan 50 mg tablet 50 mg PO DAILY RF: 0 atorvastatin 40 mg tablet 40 mg PO DAILY RF: 0 aspirin [Aspir-81] 81 mg Tablet,Delayed Release (Dr/Ec) 81 mg PO DAILY RF: 0 lansoprazole 30 mg capsule,delayed release(DR/EC) 30 mg PO DAILY RF: 0 allopurinol 300 mg tablet 300 mg PO DAILY RF: 0 Discharge Orders: Discharge Order (Routine); Ordered 09/14/21 Ordered By: Jamarcus Mccoy Admission Data Admit Date/Time: 09/13/21 17:35 Attending Provider: Jamarcus Mccoy Admit Provider: Jamarcus Mccoy Primary Care Provider: Karuna Price Other Providers: Jodie Tilley ; Benjamin Martínez ; Jodie Mulligan ; Alexis Escobar ; Matias Sumner
[2021-09-14] MEDS: LANSOPRAZOLE 30 MG SOLTAB PO SCH (10:51)
--- NOTE | 2021-09-14 11:20 | Pharmacy Report ---
Pharmacist Stroke Counseling - Date of Service September 14, 2021 - Scope: Pharmacy has been consulted to provide medication discharge counseling for this patient admitted with ischemic stroke as per the Pharmacist Discharge Counseling for Stroke Patients Protocol. - Medications on Discharge: Home Medications Medication Instructions Recorded Confirmed allopurinol 300 mg tablet 300 mg PO DAILY 08/19/18 09/11/21 aspirin 81 mg tablet,delayed 81 mg PO DAILY 08/19/18 09/11/21 release (Aspir-) atorvastatin 40 mg tablet 40 mg PO DAILY 08/19/18 09/11/21 lansoprazole 30 mg capsule,delayed 30 mg PO DAILY 08/19/18 09/11/21 release losartan 50 mg tablet 50 mg PO DAILY 08/19/18 09/11/21 New Rx's Medication Instructions Recorded clopidogrel 75 mg tablet 75 mg PO QAM #30 tab 09/14/21 - Action: The above medications, specifically ones for stroke treatment/prophylaxis, have been reviewed in detail with the patient and/or patient shared services representative(s) prior to discharge. This includes indication, common adverse reactions, drug interactions, and medication administration. Medication counseling has been employed using the teach-back method to ensure understanding. - Outcome: The patient and/or patient shared services representative(s) have demonstrated understanding of the medications. Additional comments: Ayo and his family members requested clarification of continuation of home losartan, which has been held during this hospitalization. Did confirm with Dr. Mccoy that he can resume the losartan tomorrow upon discharge. Communicated this with the patient and demonstrated understanding. Thank you for allowing pharmacy to be involved in the care of this patient. Please call [phone] with any additional questions
== END 2021-09-14 16:30 | disposition home health service (06) | DRG 65 ==
LOC: 1E 09:28 → CC 09:28 → SUATTDRO 15:21
PROC: CLB.CCO (2021-09-11 10:30)